=== PATIENT | male | born 1965 | race Caucasian/White ===

== ENCOUNTER → 2019-11-18 16:13 | Outpatient (BNVA) | payer OTHER, SELFPAY | PROVIDERS: PCP Nurse Practitioner; Visit Provider Internal Medicine Cardiovascular Disease | DX: I50.22 Chronic systolic (congestive) heart failure (principal); R06.02 Shortness of breath; I50.33 Acute on chronic diastolic (congestive) heart failure; I42.8 Other cardiomyopathies | CPT/HCPCS: 80048; 80162; 83880; 84443 ==

== ENCOUNTER → 2019-11-24 11:21 | Outpatient (BNVA) | payer SELFPAY | PROVIDERS: PCP Nurse Practitioner; Visit Provider Internal Medicine Cardiovascular Disease | DX: I50.22 Chronic systolic (congestive) heart failure (principal); R06.02 Shortness of breath; I42.8 Other cardiomyopathies; Z79.01 Long term (current) use of anticoagulants; E11.65 Type 2 diabetes mellitus with hyperglycemia; F17.200 Nicotine dependence, unspecified, uncomplicated; D69.6 Thrombocytopenia, unspecified; R07.9 Chest pain, unspecified; I48.0 Paroxysmal atrial fibrillation | CPT/HCPCS: 85025 ==

== ENCOUNTER 2019-12-30 08:20 | Outpatient (CLI) | payer BC, SELFPAY ==
--- NOTE | 2019-12-30 08:36 | USCV_ITS ---
Edward Amaro Age: 54 Gender: M : 1965 Exam Date: 12/30/2019 08:50 Ordering Phys: Adam Sepulveda MD ([email or web address]) Technologist: Cynthia Alexis Exam Location: [facility] – [place] Indication: CHRONIC SYSTOLIC CHF BP: / HR: 115 Rhythm: Atrial fibrillation Technical Quality: Adequate MEASUREMENTS (Male / Female) Normal Values 2D ECHO LV Diastolic Diameter PLAX 5.5 cm 4.2 - 5.9 / 3.9 - 5.3 cm LV Systolic Diameter PLAX 4.6 cm IVS Diastolic Thickness 1.3 cm 0.6 - 1.0 / 0.6 - 0.9 cm IVS Systolic Thickness 1.5 cm LVPW Diastolic Thickness 1.5 cm 0.6 - 1.0 / 0.6 - 0.9 cm LVPW Systolic Thickness 1.6 cm LVOT Diameter 2.0 cm LV Ejection Fraction 2D Teich 32.8 % LV Ejection Fraction MOD 2C 33.8 % LV Ejection Fraction 2C AL 36.0 % LA Diameter 5.0 cm LA Width 2.5 cm LA Height 6.5 cm RA Width 3.4 cm RA Height 5.6 cm M-MODE LV Diastolic Diameter MM 5.6 cm 4.2 - 5.9 / 3.9 - 5.3 cm LV Systolic Diameter MM 4.2 cm LV Ejection Fraction MM Teich 49.4 % IVS Diastolic Thickness MM 1.7 cm 0.6 - 1.0 / 0.6 - 0.9 cm IVS Systolic Thickness MM 1.5 cm LVPW Diastolic Thickness MM 1.6 cm 0.6 - 1.0 / 0.6 - 0.9 cm LVPW Systolic Thickness MM 1.8 cm Aortic Annulus Diameter 4.0 cm LA Ao Ratio MM 1.3 MV E Point Septal Separation 1.4 cm DOPPLER AV Peak Velocity 146.0 cm/s LVOT Peak Velocity 94.0 cm/s AV Area Cont Eq vti 2.0 cm squared AV Area Cont Eq pk 2.1 cm squared MV Peak Velocity 128.0 cm/s MV Area PHT 4.4 cm squared Mitral E to A Ratio 8.8 MV E' Velocity 14.0 cm/s Mitral E to MV E' Ratio 8.7 Mitral E to LV E' Lateral Ratio 8.0 Mitral E to LV E' Septal Ratio 9.4 TR Peak Velocity 256.0 cm/s TR Peak Gradient 26.1 mmHg Right Atrial Pressure 3.0 mmHg Pulmonary Artery Systolic Pressu 29.2 mmHg PV Peak Velocity 86.0 cm/s RV Acceleration Time 0.1 s FINDINGS Left Ventricle Diffuse hypokinesia of the left ventricle, most of the septum. LV ejection fraction around 40%. Right Ventricle The right ventricle is normal in size and function. Right Atrium Mildly dilated Left Atrium Mildly dilated Mitral Valve Mild mitral regurgitation Aortic Valve No significant abnormalities noted Tricuspid Valve Trace of tricuspid regurgitation Pulmonic Valve Not visualized well Pericardium No pericardial effusion Aorta Normal aortic annulus CONCLUSIONS Normal left ventricular size with a diminished ejection fraction of 40%. Wall motion normality as mentioned above Mild biatrial enlargement. Mild mitral regurgitation. Mild mitral regurgitation. Trace of tricuspid regurgitation. No intracardiac masses. No pericardial effusion. No similar previous studies are available for comparison. Dr Adam Sepulveda MD [facility] (Electronically Signed) Final Date: 30 December 2019 11:30 S
== END 2019-12-30 08:21 | disposition home or self-care (01) ==
LOC: RAD 08:29
PROVIDERS: PCP Nurse Practitioner; Visit Provider Internal Medicine Cardiovascular Disease
DX: I50.22 Chronic systolic (congestive) heart failure (principal); I48.91 Unspecified atrial fibrillation; I34.0 Nonrheumatic mitral (valve) insufficiency; R06.02 Shortness of breath
CPT/HCPCS: 80048; 80162; 83880; 93306

== ENCOUNTER → 2020-03-17 16:22 | Outpatient (BNVA) | payer BC, SELFPAY | PROVIDERS: PCP Nurse Practitioner; Visit Provider Internal Medicine Cardiovascular Disease | DX: I50.22 Chronic systolic (congestive) heart failure (principal); R06.02 Shortness of breath; I50.33 Acute on chronic diastolic (congestive) heart failure; I42.8 Other cardiomyopathies; I48.0 Paroxysmal atrial fibrillation | CPT/HCPCS: 85610 ==

== ENCOUNTER → 2020-03-23 11:35 | Outpatient (BNVA) | payer BC, SELFPAY | PROVIDERS: PCP Nurse Practitioner; Visit Provider Nurse Practitioner Family | DX: E11.65 Type 2 diabetes mellitus with hyperglycemia (principal); E03.9 Hypothyroidism, unspecified; I48.0 Paroxysmal atrial fibrillation; Z12.5 Encounter for screening for malignant neoplasm of prostate | CPT/HCPCS: 80053; 80061; 83036; 84153; 84443; 85025; 85610 ==

== ENCOUNTER → 2020-03-30 14:02 | Outpatient (BNVA) | payer BC, SELFPAY | PROVIDERS: PCP Nurse Practitioner; Visit Provider Nurse Practitioner | DX: I48.0 Paroxysmal atrial fibrillation (principal); M17.12 Unilateral primary osteoarthritis, left knee; M25.462 Effusion, left knee; M25.561 Pain in right knee | CPT/HCPCS: 73562; 85610 ==

== ENCOUNTER → 2020-04-06 15:24 | Outpatient (BNVA) | payer BC, SELFPAY | PROVIDERS: PCP Nurse Practitioner; Visit Provider Internal Medicine Cardiovascular Disease | DX: I48.0 Paroxysmal atrial fibrillation (principal) | CPT/HCPCS: 85610 ==

== ENCOUNTER → 2020-05-11 10:47 | Outpatient (BNVA) | payer BC, SELFPAY | PROVIDERS: PCP Nurse Practitioner; Visit Provider Nurse Practitioner Family | DX: E11.65 Type 2 diabetes mellitus with hyperglycemia (principal); I73.9 Peripheral vascular disease, unspecified; L08.9 Local infection of the skin and subcutaneous tissue, unspecified; M79.671 Pain in right foot; S91.309A Unspecified open wound, unspecified foot, initial encounter | CPT/HCPCS: 73630; 85025; 87070; 87075; 87077; 87184; 87205 ==

== ENCOUNTER → 2020-05-13 18:28 | Outpatient (BNVA) | payer BC, SELFPAY | PROVIDERS: PCP Nurse Practitioner; Visit Provider Surgery | DX: Z01.812 Encounter for preprocedural laboratory examination (principal); Z20.828 Contact with and (suspected) exposure to other viral communicable diseases | CPT/HCPCS: 87635 ==

== ENCOUNTER 2020-05-17 07:37 | Day surgery (SDC) | payer BC, SELFPAY ==
[2020-05-13 10:13] VITALS: BMI 46.1
[2020-05-17] MEDS: sodium chloride 0.9% 1,000 ML 30 ML IV (08:00)
[2020-05-17 08:13] LABS: Glucose Point of Care 118 mg/dL (70-110)
--- NOTE | 2020-05-17 08:26 | P.ANESASSM_ITS ---
Pre-Anesthetic Assessment Pre-Anesthetic Assessment: Height/Weight: Height 1.85 m Weight 158.757 kg Proposed Procedure: Operation Date: 05/17/20 08:30 Proposed Procedures p Colonoscopy 02439 Z12.11(Not Applicable) - Albaro Macias MD Familial anesthetic complications: denies Was Beta Davey taken within 24 hours: N/A Last intake: Intake Last Liquid Date 05/16/20 Last Liquid Time 21:00 Last Solid Date 05/15/20 Last Solid Time 23:00 Last Intake: 00:00 Social: Social History: Tobacco (1 ppd ) and No alcohol Pack years: 25 Comment: smoked this am Exam: Pre-Anes Outpt Exam: alert, oriented x 3 and clear to auscultation bilaterally Airway: Submandibular: WNL Cervical ROM: WNL MP: 2 Additional comments: poor nursing home missing teeth Pulmonary: Pulmonary: COPD and Sleep apnea (undiagnosed ) CV/HEM: CV/HEM: Afib (Dr. Derick Downey ) and CHF : : None reported Hepatic: Hepatic: None reported GI: GI: GERD Metabolic: Metabolic: DM (NIIDM ) and Morbid obesity Musc/skel: Musc/skel: OA/DJD (knee pain ) Neuropsych: Neuropsych: None reported Anesthetic Plan: ASA status: 3 Anesthesia: Anesthesia Evaluation and MAC Meds/Allergies Current Medications: Current Medications Generic Name Dose Route Start Last Admin Trade Name Freq PRN Reason Stop Dose Admin Sodium Chloride 1,000 mls @ 30 ml s/hr 05/17/20 08:00 05/17/20 08:00 Sodium Chloride 0.9% IV 05/18/20 07:59 30 mls/hr .Q24H CRYSTAL Administration PFSH Anesthesia PFSH: Medical History Atrial fibrillation Could not afford Eliquis CAD (coronary artery disease) CHF (congestive heart failure) Chronic systolic (congestive) heart failure Diabetes Non-ischemic cardiomyopathy PVD (peripheral vascular disease) Suprapatellar effusion of knee Thrombocytopenia Surgical History H/O circumcision H/O cystoscopy S/P left knee arthroscopy Family History Other CAD (coronary artery disease) Cancer Stroke Denies family history of Anesthesia complication Bleeding disorder Social History Smoking and tobacco status: current every day smoker Quit status (tobacco): considering quitting Alcohol intake: current Alcohol intake frequency: holidays/special occasions only Household members: spouse Marital status: Current occupational status: unemployed History of recent travel: No Data Anesthesia Other Labs: Laboratory Results - last 48 hr 05/17/20 08:09 POC Glucose 118 Cardiac Studies: 2 No Data to Display
--- NOTE | 2020-05-17 08:31 | W.PM.OPSFHP ---
Same Day Surgery H&P Indication for Procedure/HPI DATE OF PROCEDURE: May 17, 2020 CHIEF COMPLAINT/INDICATIONFOR SURGICAL PROCEDURE: screening colon PREOP DIAGNOSIS: screening colon PLANNED PROCEDRUE: Operation Date: 05/17/20 08:30 Proposed Procedures p Colonoscopy 30569 Z12.11(Not Applicable) - Albaro Macias MD Medications/Allergies* Home Medications Medication Instructions Recorded Confirmed Type aspirin 81 mg tablet,delayed 81 mg PO DAILY 11/18/19 05/17/20 History release docusate sodium 100 mg capsule 100 mg PO BID PRN 11/18/19 05/17/20 History Allergies/Adverse Reactions Allergy/AdvReac Type Severity Reaction Status Date / Time No Known Allergies Allergy Verified 05/16/20 09:36 Current Medications: Generic Name Dose Route Start Last Admin Trade Name Freq PRN Reason Stop Dose Admin Sodium Chloride 1,000 mls @ 30 mls/hr 05/17/20 08:00 05/17/20 08:00 Sodium Chloride 0.9% IV 05/18/20 07:59 30 mls/hr .Q24H CRYSTAL Administration Pertinent History/Comorbid Conditions* Medical History (Updated 04/28/20 @ 13:49 by MARISSA Burger-C) Atrial fibrillation Could not afford Eliquis CAD (coronary artery disease) CHF (congestive heart failure) Chronic systolic (congestive) heart failure Diabetes Non-ischemic cardiomyopathy PVD (peripheral vascular disease) Suprapatellar effusion of knee Thrombocytopenia Surgical History (Updated 04/12/20 @ 18:32 by Albaro Macias MD) H/O circumcision H/O cystoscopy S/P left knee arthroscopy Family History (Updated 11/18/19 @ 15:24 by Ginna Mina RN) CAD (coronary artery disease) Cancer Stroke Denies family history of Anesthesia complication Bleeding disorder Social History Smoking and tobacco status: current every day smoker Quit status (tobacco): considering quitting Alcohol intake: current Alcohol intake frequency: holidays/special occasions only Household members: spouse Marital status: Current occupational status: unemployed History of recent travel: No Pertinent Exam Findings alert, oriented x 3, regular rate & rhythm and operative site marked Recommendations Surgery/Procedure today Coding Level of Care Code 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
[2020-05-17 09:08] VITALS: BP 101/31; PULSE 95; RESP 18; TEMP 36.1; O2SAT 94
[2020-05-17 09:17] VITALS: BP 109/73; PULSE 81; RESP 18; O2SAT 97
--- NOTE | 2020-05-17 17:30 | ANE.PACU2 ---
Inpatient post-anesthesia follow up: Airway intact: Yes Vital signs: Temperature 97.0 F Pulse Rate 81 Respiratory Rate 18 Blood Pressure 109/73 Pulse Oximetry 97 Oxygen Delivery Me thod Nasal Cannula Oxygen Flow Rate 3 Fraction of Inspir ed Oxygen Hydration adequate: Yes Nausea and vomiting: No Pain level: 1 Mental status: Baseline
== END 2020-05-17 09:32 | disposition home or self-care (01) ==
PROVIDERS: PCP Nurse Practitioner Family; Visit Provider Surgery
PROC: 0DJD8ZZ Inspection of Lower Intestinal Tract, Via Natural or Artificial Opening Endoscopic (ICD-10-PCS; CPT 45378; principal; 2020-05-17 08:30)
DX: Z12.11 Encounter for screening for malignant neoplasm of colon (principal); D12.3 Benign neoplasm of transverse colon; K64.8 Other hemorrhoids; Z79.82 Long term (current) use of aspirin; I25.10 Atherosclerotic heart disease of native coronary artery without angina pectoris; I50.9 Heart failure, unspecified; I50.20 Unspecified systolic (congestive) heart failure; Z82.49 Family history of ischemic heart disease and other diseases of the circulatory system; Z82.3 Family history of stroke; F17.210 Nicotine dependence, cigarettes, uncomplicated; I48.91 Unspecified atrial fibrillation; M19.90 Unspecified osteoarthritis, unspecified site
CPT/HCPCS: 12345; 36416; 45385; 82962; 88305; J2704; J7030

== ENCOUNTER 2020-06-07 16:38 | Outpatient (CLI) | payer BC, SELFPAY ==
--- NOTE | 2020-06-07 16:47 | MR_ITS ---
WS: [id number] INDICATION: Cellulitis right lower limb TECHNIQUE: MR of the right foot without gadolinium enhancement. Sagittal PD, sagittal STIR, axial T1, axial STIR, axial PD, axial T2, coronal PD, and coronal T2 fat sat FINDINGS: Normal ankle mortise. Normal medial and lateral malleolus. Normal talar dome. Normal calcan eus. Normal bone marrow signal in the metatarsals. Normal metatarsals. Normal bone marrow signal in t he navicular and cuneiforms. Normal cuboid. Soft tissue edema lower leg and ankle and dorsal midfoot soft tissues. No drainable abscess or fluid collection. Normal underlying bone marrow signal. Ulceration along the plantar arch midfoot. No drain able abscess or fluid collections. Distal Achilles is normal in appearance. Tenosynovitis along the peroneal tendon sheaths. Normal exte nsor and flexor compartment tendons. Normal plantar fascia. MR/MR foot RT wo con* [id number] IMPRESSION: 1. Marker overlying the medial plantar surface. No drainable abscess or fluid collection. 2. Soft tissue edema lower leg and ankle and dorsal midfoot soft tissues consi stent with cellulitis. No drainable abscess or fluid collection. 3. No evidence of osteomyelitis. Normal bone marrow signal. 4. Tenosynovitis along the peroneal tendon sheath.
== END 2020-06-07 16:39 | disposition home or self-care (01) ==
LOC: RADSHAW 16:41
PROVIDERS: PCP Nurse Practitioner Family; Visit Provider Nurse Practitioner Family
DX: L03.115 Cellulitis of right lower limb (principal); R60.0 Localized edema; M65.871 Other synovitis and tenosynovitis, right ankle and foot
CPT/HCPCS: 73718

== ENCOUNTER 2020-06-07 20:00 | Outpatient (CLI) | payer BC, SELFPAY | END 2020-06-07 20:01 | disposition home or self-care (01) | LOC: SLEEP 06-08 10:15 | PROVIDERS: PCP Nurse Practitioner Family; Visit Provider Nurse Practitioner Family | DX: G47.33 Obstructive sleep apnea (adult) (pediatric) (principal); E11.65 Type 2 diabetes mellitus with hyperglycemia | CPT/HCPCS: 80053; 83036; 84443; 85025; 95810 ==

== ENCOUNTER 2020-09-05 20:00 | Outpatient (CLI) | payer OTHER, SELFPAY | END 2020-09-05 20:01 | disposition home or self-care (01) | LOC: SLEEP 09-06 09:08 | PROVIDERS: PCP Nurse Practitioner Family; Visit Provider Nurse Practitioner | DX: G47.33 Obstructive sleep apnea (adult) (pediatric) (principal) | CPT/HCPCS: 95811 ==

== ENCOUNTER → 2020-09-06 15:04 | Outpatient (BNVA) | payer OTHER, SELFPAY | PROVIDERS: PCP Nurse Practitioner Family; Visit Provider Nurse Practitioner Family | DX: E11.65 Type 2 diabetes mellitus with hyperglycemia (principal) | CPT/HCPCS: 80053; 80061; 83036; 84443; 85025 ==

== ENCOUNTER 2020-09-19 06:00 | Outpatient (CLI) | payer OTHER, SELFPAY | END 2020-09-19 06:01 | disposition home or self-care (01) | LOC: RAD 09-05 14:09 → LAB 09-05 14:55 | PROVIDERS: PCP Nurse Practitioner Family; Visit Provider Internal Medicine Cardiovascular Disease | DX: I48.0 Paroxysmal atrial fibrillation (principal) | CPT/HCPCS: 85610 ==

== ENCOUNTER → 2020-10-04 15:37 | Outpatient (BNVA) | payer OTHER, SELFPAY | PROVIDERS: PCP Nurse Practitioner Family; Visit Provider Nurse Practitioner Family | DX: I48.0 Paroxysmal atrial fibrillation (principal) | CPT/HCPCS: 85610 ==

== ENCOUNTER 2020-10-05 06:00 | Outpatient (RCR) | payer OTHER, SELFPAY | END 2020-10-05 23:59 | disposition home or self-care (01) | LOC: APT 06:00 | PROVIDERS: PCP Nurse Practitioner Family; Referring Provider Nurse Practitioner Family; Visit Provider Nurse Practitioner Family | DX: M17.0 Bilateral primary osteoarthritis of knee (principal); M25.561 Pain in right knee; M25.562 Pain in left knee; G89.29 Other chronic pain | CPT/HCPCS: 97163 ==

== ENCOUNTER 2020-10-06 06:00 | Outpatient (RCR) | payer OTHER, SELFPAY | END 2020-11-04 23:59 | disposition home or self-care (01) | LOC: APT 06:00 | PROVIDERS: PCP Nurse Practitioner Family; Referring Provider Nurse Practitioner Family; Visit Provider Nurse Practitioner Family | DX: M17.0 Bilateral primary osteoarthritis of knee (principal); M25.561 Pain in right knee; M25.562 Pain in left knee; G89.29 Other chronic pain | CPT/HCPCS: 97110 ==

== ENCOUNTER 2020-11-05 06:00 | Outpatient (RCR) | payer OTHER, SELFPAY | END 2020-12-05 23:59 | disposition home or self-care (01) | LOC: APT 06:00 | PROVIDERS: PCP Nurse Practitioner Family; Referring Provider Nurse Practitioner Family; Visit Provider Nurse Practitioner Family | DX: M17.0 Bilateral primary osteoarthritis of knee (principal); M25.561 Pain in right knee; M25.562 Pain in left knee; G89.29 Other chronic pain | CPT/HCPCS: 97110 ==

== ENCOUNTER → 2020-11-09 15:07 | Outpatient (BNVA) | payer OTHER, SELFPAY | PROVIDERS: PCP Nurse Practitioner Family; Visit Provider Nurse Practitioner Family | DX: M54.2 Cervicalgia (principal); M25.511 Pain in right shoulder; I50.9 Heart failure, unspecified; I48.0 Paroxysmal atrial fibrillation | CPT/HCPCS: 85610 ==

== ENCOUNTER 2020-11-10 13:48 | Outpatient (CLI) | payer OTHER, SELFPAY ==
--- NOTE | 2020-11-10 13:56 | XR_ITS ---
WS: [id number] CERVICAL SPINE 3 VIEWS HISTORY: M54.2 - Cervicalgia COMPARISON: None available. Mild straightening of the normal cervical lordosis. C7 is poorly visualized in the lateral projection . No fractures are identified. Disc spaces are well-maintained. Lateral mass of C1 and C2 are aligned . Odontoid intact. Soft tissues are normal. XR/XR cervical spine 3V* [id number] IMPRESSION: 1. No fracture or significant disc space narrowing. 2. Incompletely visualized C7 vertebral body due to body habitus.
--- NOTE | 2020-11-10 13:56 | XR_ITS ---
WS: [id number] RIGHT SHOULDER: 3 VIEW(S) TECHNIQUE: Internal and external rotation with Y view. HISTORY: M25.511 - Pain in right shoulder COMPARISON: None available. No fracture or dislocation or soft tissue abnormality. Moderate narrowing of the AC joint. There is a small osteophyte extending inferiorly from the distal clavicle. Small calcific density adjacent to the lateral humeral head. XR/XR shoulder RT min 2V* [id number] IMPRESSION: 1. Moderate AC joint arthritis with focal osteophyte extending towards the rot ator cuff. 2. Posterior lateral humeral head osteophyte versus rotator cuff calcific tend initis.
== END 2020-11-10 13:49 | disposition home or self-care (01) ==
PROVIDERS: PCP Nurse Practitioner Family; Visit Provider Nurse Practitioner Family
DX: M54.2 Cervicalgia (principal); M25.511 Pain in right shoulder; M13.811 Other specified arthritis, right shoulder; M25.711 Osteophyte, right shoulder
CPT/HCPCS: 72040; 73030

== ENCOUNTER → 2020-11-17 13:34 | Outpatient (BNVA) | payer OTHER, SELFPAY | PROVIDERS: PCP Nurse Practitioner Family; Visit Provider Internal Medicine Cardiovascular Disease | DX: I48.0 Paroxysmal atrial fibrillation (principal) | CPT/HCPCS: 85610 ==

== ENCOUNTER → 2021-01-19 10:58 | Outpatient (BNVA) | payer OTHER, SELFPAY | PROVIDERS: PCP Nurse Practitioner Family; Visit Provider Nurse Practitioner Family | DX: E11.65 Type 2 diabetes mellitus with hyperglycemia (principal); I48.0 Paroxysmal atrial fibrillation; I50.22 Chronic systolic (congestive) heart failure; D69.6 Thrombocytopenia, unspecified | CPT/HCPCS: 80053; 80061; 83036; 84443; 85025; 85610 ==

== ENCOUNTER → 2021-02-28 14:07 | Outpatient (BNVA) | payer OTHER, SELFPAY | PROVIDERS: PCP Nurse Practitioner Family; Visit Provider Internal Medicine Cardiovascular Disease | DX: I48.0 Paroxysmal atrial fibrillation (principal); Z79.01 Long term (current) use of anticoagulants | CPT/HCPCS: 85610 ==

== ENCOUNTER → 2021-03-07 11:18 | Outpatient (BNVA) | payer OTHER, SELFPAY | PROVIDERS: PCP Nurse Practitioner Family; Visit Provider Internal Medicine Cardiovascular Disease | DX: I48.0 Paroxysmal atrial fibrillation (principal) | CPT/HCPCS: 85610 ==

== ENCOUNTER 2021-05-22 07:02 | Outpatient (CLI) | payer OTHER, SELFPAY ==
--- NOTE | 2021-05-22 07:07 | USCV_ITS ---
Edward Amaro Age: 56 Gender: M : 1965 Exam Date: 05/22/2021 07:18 Ordering Phys: Adam Sepulveda MD ([email or web address]) Technologist: Fozia Bustillos Exam Location: [facility] – [place] Indication: COLD FEET Risk Factors: Previous Vascular Surgery: RIGHT LEFT BP: 150.0 / BP: 160.0/ 0 0 Waveform Velocity (cm/s) Velocity (cm/s) Waveform Triphasic 118.5 Iliac Prox 86.8 Triphasic Triphasic 97.5 Iliac Mid 99.5 Triphasic Triphasic 79.0 Iliac Distal 87.6 Triphasic Triphasic 85.4 [facility] [employer] 57.2 Triphasic N/A SFA Prox 87.2 Triphasic N/A SFA Mid 104.7 Triphasic N/A SFA Dist 89.3 Triphasic Monophasic 38.5 POP 66.8 Triphasic Monophasic 38.5 W[facility] [employer] 62.9 Triphasic Monophasic 35.9 DPA 45.8 Triphasic LAWANDA 1.0 FINDINGS UNABLE TO OBTAIN RIGHT LAWANDA Mild to moderate diffuse plaques in the iliac and common femoral artery on the right side No Doppler flow signals were noted in the superficial femoral artery on the right side. Monophasic and continuous Doppler waveforms in the popliteal and infrapopliteal vessels on the right side Normal resting LAWANDA on the left side-1.0. 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 Normal resting LAWANDA and Doppler waveforms on the left side, suggesting no significant obstructive arterial disease. No similar previous studies are available for comparison Dr Adam Sepulveda MD [facility] (Electronically Signed) Final Date: 22 May 2021 09:41 S
== END 2021-05-22 07:03 | disposition home or self-care (01) ==
LOC: US 07:04
PROVIDERS: PCP Nurse Practitioner Family; Visit Provider Internal Medicine Cardiovascular Disease
DX: I73.9 Peripheral vascular disease, unspecified (principal)
CPT/HCPCS: 93925

== ENCOUNTER → 2021-06-08 15:50 | Outpatient (BNVA) | payer OTHER, SELFPAY | PROVIDERS: PCP Nurse Practitioner Family; Visit Provider Internal Medicine Cardiovascular Disease | DX: Z01.812 Encounter for preprocedural laboratory examination (principal); Z20.822 Contact with and (suspected) exposure to COVID-19; I48.0 Paroxysmal atrial fibrillation; I25.10 Atherosclerotic heart disease of native coronary artery without angina pectoris; I50.22 Chronic systolic (congestive) heart failure; I73.9 Peripheral vascular disease, unspecified; E11.65 Type 2 diabetes mellitus with hyperglycemia; Z87.891 Personal history of nicotine dependence | CPT/HCPCS: 80048; 85025; 85610; 86850; 86900; 87635 ==

== ENCOUNTER 2021-06-14 06:04 | Outpatient (CLI) | payer OTHER, SELFPAY ==
[2021-06-14] VITALS (17 sets, daily range): BP systolic 76–144; BP diastolic 58–93; PULSE 76–106; RESP 20–26; TEMP 36.3–37.2; O2SAT 85–97; BMI 48.0
--- NOTE | 2021-06-14 06:00 | XACV_ITS ---
Wt: 165 kg BSA: 3.00 m2 Any Known Allergies: No known allergies Gender: Male : 1965 Exam Type: Invasive Peripheral Vascular Procedure(s): Procedure Description: Peripheral Cath Diagnostic Procedure Procedure Description: Abdominal aortic angiography Procedure Description: Peripheral vascular Intervention Procedure Description: PV Atherectomy Exam Priority: Routine GEOAC, Derick; Abdominal Diagnostic Findings The abdominal aortogram was performed in the AP view. The renal artery and inferior mesenteric arteries are visualized and was found to have no significant stenotic lesions. The abdominal aorta also was found to have no unstable lesions or stenosis. The right and left common iliac arteries were found to be patent with no significant stenotic lesions. The the ostium of the right internal iliac artery was found to have around 50% narrowing. The ostium of the left internal iliac artery was found to have around 60% narrowing. The external iliac arteries were found to be patent with no significant stenotic lesions.. Lower Extremity Diagnostic Findings The right common femoral artery was selectively engaged. A multipurpose catheter was placed just above the origin of the profunda femoral artery. Femoral angiogram with runoff was performed. The femoral artery was found to be totally occluded after the origin of the profunda femoral artery. The artery was found to be reconstituting just at the distal end of the adductor canal. Popliteal artery and the infrapopliteal vessels were found to be patent with no significant stenotic lesions. Left iliac angiogram with runoff was performed by injecting into the left femoral sheath. The common femoral and the femoral artery were found to have minimal intimal irregularities. No significant stenotic lesions were noted. The popliteal and infrapopliteal vessels were found to be patent with no significant stenotic lesions. Three-vessel runoff was noted resting extending to the ankle. Conclusions 56-year-old white male with a history of nonischemic cardiomyopathy, chronic atrial fibrillation, presenting with complaining of cold feet bilaterally, more so on the left side. He had an LAWANDA of 0.5 on the left side and normal LAWANDA on the right side. He also had features of total occlusion of the SFA. For further evaluation and management of his peripheral artery disease, a peripheral angiogram was recommended. Patient underwent abdominal aortogram, right femoral angiogram with runoff and left iliac angiogram with runoff today. The findings are as follows.. 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 Patent popliteal and infrapopliteal vessels bilaterally. Minimal intimal regularities in the left femoral artery. Mild to moderate stenosis at the ostium of the internal iliac artery on both sides. No significant stenotic or unstable lesions in the abdominal aorta, renal arteries or inferior mesenteric artery. Recommendations Based on the angiogram and patient's clinical presentation, it was thought to be appropriate to consider percutaneous intervention of the femoral artery occlusion. I discussed and reviewed the angiogram data with the Dr Sheehan. He concurred with this plan. Dr. Sheehan took over further management of this patient at this point. Hemodynamic Data Phase:Rest AO : 98.0 / 60.0 ( 72.0 ) @ 6:15:00 AM 90.0 / 60.0 ( 69.0 ) @ 8:11:00 AM 111.0 / 66.0 ( 78.0 ) @ 8:39:00 AM 99.0 / 59.0 ( 73.0 ) @ 9:50:00 AM 106.0 / 67.0 ( 79.0 ) @ 10:21:00 AM Access Site Site: Left Femoral artery Sheath Size: 5 Fr Hemost... Method: Suture Hemost... Success: Successful Site: Left Femoral artery Sheath Size: 6 Fr Hemost... Method: Suture Hemost... Success: Successful Site: Right Pedal Sheath Size: 6 Fr Hemost... Method: Manual Compression Hemost... Success: Successful Site: Right Pedal Sheath Size: 6 Fr Hemost... Method: Suture Hemost... Success: Successful Procedure Details Findings Procedure Consent Obtained. Pre-Procedure Time Out. Identified patient by full name and date of as verbalized by the patient/guarantor. Does the consent match the physician's order: Yes. Accurate & Complete Informed Consent: Yes. Inpatient/Outpatient History & Physical on Chart: Yes. If H&P is completed, is and addenduem needed: N/A; If yes, is the addendum complete: N/A. Visualize and Verify Site with Patient/Guarantor: N/A. Relevant Radiology Images available: Yes. Pre-op teaching completed and patient verbalized understanding. The risks, benefits, and alternatives of sedation and/or procedure were discussed by physician. The patient agrees to continue. Procedure started. Correct patient, site and procedure confirmed by cath team. PERRLA. Strong, equal hand intermediate school teacher bilaterally. Lungs clear x 5 lobes. IV Site on Arrival: 20 gauge in the left anticubital. IV Fluids: 0.9% NaCl at KVO. 0 mL infused prior to laboratory chief. Pre Procedural Pulses: right dorsalis pedis was Doppled. Pre Procedural Pulses: left dorsalis pedis was 1+. Pre Procedural Pulses: bilateral posterior tibial was Doppled. Pre Procedural Pulses: bilateral radial was 1+. Oxygen started at 2liters/min via nasal canula. bilateral groins was prepped with chloroprep then draped in the usual sterile fashion. Physician notified. Baseline sample Acquired. HR: 108 BPM. Equipment: 6F - Femoral. Cardiac Cath Pack. ACIST Manifold Kit Model BT 2000. Heparinized Saline (2 units/mL), 1000 mL bag. Kit, Micropuncture. Physician arrived. Physician scrubbed in. Time out performed with cath team. Lidocaine 1% infiltrated to the left groin. Arterial access obtained with micropuncture set. A 5FrFr UF catheter in over wire. Abdominal aortogram performed in AP @ 10 mL/sec for a total of 30 mL. glidewire inserted. Catheter out. glidewire removed. right leg run off 10ml/sec for a total of 30ml. glidewire inserted. Abdominal aortogram performed in ANDORRAN @ 10 mL/sec for a total of 10 mL. Catheter out. left leg run off through sheath 10ml/sec for a total of 30ml. Side port of sheath attached to Normal Saline flush at KVO to maintain patency. Dr. Sepulveda scrubbed out. A Suture was successful obtaining hemostatsis at the Left Femoral artery insertion site. Sheath(s) sutured into position with 2-0 silk and sterile 4x4's and Op-site applied over the site. No oozing or signs and symptoms of hematoma noted. Arterial sheath flushed and connected to tranducer and pressure bag with heparinized saline. Post Procedure: Pulses reassessed and unchanged. PERRLA. Strong, equal hand intermediate school teacher bilaterally. No VTE prophylaxis required. Fluoro: 7:20. Contrast type used: Visipaque 320 mgI/mL, 500 mL bottle. [id number]. Post-op diagnosis: pvd. Complications: none. Estimated blood loss: 5mL-10mL. Responsiveness - Normal response to verbal stimuli; alert and oriented, PERRLA. Airway - Unaffected, no intervention required; spontaneous ventilation. Circulation: W/N/L, pulses unchanged. Nausea/Vomiting: No. Procedure completed. Patient transferred by bed to CPRU. Medication's Wasted: Lidocaine 1% = 10 mL. Total IV fluids: 100 mL. Vital chart was stopped. Vital chart was stopped. Procedure Consent Obtained. Pre-Procedure Time Out. Identified patient by full name and date of as verbalized by the patient/guarantor. Does the consent match the physician's order: Yes. Accurate & Complete Informed Consent: Yes. Inpatient/Outpatient History & Physical on Chart: Yes. If H&P is completed, is and addenduem needed: No. Visualize and Verify Site with Patient/Guarantor: N/A. Relevant Radiology Images available: Yes. The risks, benefits, and alternatives of sedation and/or procedure were discussed by physician. The patient agrees to continue. Procedure started. PERRLA. Strong, equal hand intermediate school teacher bilaterally. Lungs clear x 5 lobes. IV Site on Arrival: 20 gauge in the left anticubital. IV Fluids: 0.9% NaCl at KVO. 500 mL infused prior to laboratory chief. Oxygen started at 2liters/min via nasal canula. left groin was prepped with chloroprep then draped in the usual sterile fashion. Physician notified. Baseline sample Acquired. HR: 92 BPM. Equipment: 6F - Radial. Cardiac Cath Pack. ACIST Manifold Kit Model BT 2000. Heparinized Saline (2 units/mL), 1000 mL bag. Physician arrived. Physician scrubbed in. (Dr Sheehan and Dr Field). Time out performed with cath team. An existing 5 fr sheath is intact from previous diagnostic procedure this AM. Will now perform intervention of right SFA. A 5 fr Cook dilator was used to reposition the existing sheath in the left femoral artery. A 5Fr RIM catheter in over the glidewire. Glidewire out. hand injection performed of the aortic arch through the 5fr RIM. Glidewire in and advanced down the right leg. RIM catheter out. Sheath upsized to a 6 Fr. Right common femoral selected and arteriogram with runoff performed @ 10 mL/sec for a total of 30 mL. Right common femoral selected and arteriogram with runoff performed @ 10 mL/sec for a total of 20 mL. Seeker catheter inserted over the glide wire and attempted to advaned across the lesion in the right SFA. Glidewire out. Hand injection of the right SFA performed through the seeker. Glidewire in. Glidewire out. Side port of sheath attached to Normal Saline flush at KVO to maintain patency. Seeker out. Moving to right pedal access. Add inventory: Cook Pedal Access kit, Terumo 0.035 Glidesheath. Lidocaine 1% infiltrated to the right pedal. Add Inventory: Micropuncture kit. Venous access obtained with micropuncture set using ultrasound. Lidocaine 1% infiltrated to the right pedal. Right pedal venous sheath removed and manual pressure held. Dr field scrubbed out. Lidocaine 1% infiltrated to the right pedal. Ultrasound was called to help with pedal artery access. Lidocaine 1% infiltrated to the right pedal. Lv Block tech here to assist with arterial access. Arterial access obtained with pedal access kit. Pedal dilator exchanged for a 6fr Glidesheath. Glidewire in. Seeker support catheter in over the glidewire. Glidewire out. Marycarmen Yanes RN in to circulate for Heriberto Miranda RN, MORTGAGE COUNSELOR. Hand injection performed through the sheath. Glidewire in. Glidewire out. Hand injection performed through the sheath. Glidewire in. Glidewire out. ViperWire advance guidewire in through the seeker. Seeker support catheter out. Right common femoral selected and arteriogram with runoff performed @ 10 mL/sec for a total of 10 mL. Right common femoral selected and arteriogram with runoff performed @ 10 mL/sec for a total of 20 mL. Right common femoral selected and arteriogram with runoff performed @ 10 mL/sec for a total of 20 mL. Right common femoral selected and arteriogram with runoff performed @ 10 mL/sec for a total of 20 mL. Add inventory: Cleeng 360 Peripheral Orbital Atherectomy System. 2.0mm [place] in and orbital atherectomy of the right SFA performed. A Manual Compression was successful obtaining hemostatsis at the Right Pedal venous insertion site. Heriberto Cabrera RN, MORTGAGE COUNSELOR in to scrub for Stanley Longoria RN, MORTGAGE COUNSELOR. Orbital Atherectomy system out. Seeker support catheter in. ViperWire out. Glidewire in. Seeker support catheter out. Add inventory: Endoflator. Inflation number : 1 A AB [place] 35 TIME CLERK Catheter [id number] was prepped and advanced across the Superficial Femoral, Right , then inflated to 6 SEVERIANO for 2:47 seconds. Inflation number: 2 The AB [place] 35 TIME CLERK Catheter [id number] was reinflated across the Superficial Femoral, Right, to 6 SEVERIANO for 2:01 seconds. Balloon out. Right common femoral selected and arteriogram with runoff performed @ 10 mL/sec for a total of 30 mL. Inflation number : 3 A AB [place] 35 OTW [id number] was prepped and advanced across the Superficial Femoral, Right , then inflated to 6 SEVERIANO for 1:56 seconds. Inflation number: 4 The AB [place] 35 OTW [id number] was reinflated across the Superficial Femoral, Right, to 6 SEVERIANO for 0:57 seconds. Inflation number: 5 The AB [place] 35 OTW [id number] was reinflated across the Superficial Femoral, Right, to 6 SEVERIANO for 0:59 seconds. Balloon out. Right common femoral selected and arteriogram with runoff performed @ 10 mL/sec for a total of 30 mL. Right common femoral selected and arteriogram with runoff performed @ 10 mL/sec for a total of 20 mL in DSA. Glidewire out. Sheath upsized to a 6 Fr. A Suture was successful obtaining hemostatsis at the Left Femoral artery insertion site. Dr Sheehan scrubbed out. Sheath(s) 6fr in Left Femoral Artery & Right Pedal Artery sutured into position with 2-0 silk and sterile 4x4's and Op-site applied over the site. No oozing or signs and symptoms of hematoma noted. Arterial sheaths flushed and connected to tranducer and pressure bag with heparinized saline. Post Procedure: Pulses reassessed and unchanged. PERRLA. Strong, equal hand intermediate school teacher bilaterally. No VTE prophylaxis required. Medication's Wasted: Nitro = 49.6 mg. Medication's Wasted: Lidocaine 1% = 5 mL. Total IV fluids: 265 mL. Post-op diagnosis: Total occlusion of the right SFA s/p successful orbital atherectomy and ballooning. Complications: none. Estimated blood loss: 5mL-10mL. Responsiveness - Normal response to verbal stimuli; alert and oriented, PERRLA. Airway - Unaffected, no intervention required; spontaneous ventilation. Circulation: W/N/L, pulses unchanged. Nausea/Vomiting: No. A Suture was successful obtaining hemostatsis at the Right Pedal insertion site. Procedure completed. Patient transferred by bed to 1st floor. Vital chart was stopped. Procedure Medications Start: 7:40 AM Stop: 7:40 AM Medication: Versed Amount: 1 mg Route: I.V. Start: 7:40 AM Stop: 7:40 AM Medication: Fentanyl Amount: 50 mcg Route: I.V. Start: 7:47 AM Stop: 7:47 AM Medication: Versed Amount: 1 mg Route: I.V. Start: 7:47 AM Stop: 7:47 AM Medication: Fentanyl Amount: 50 mcg Route: I.V. Start: 8:17 AM Stop: 8:17 AM Medication: 0.9% Saline Amount: 125 ml/hr Route: I.V. drip Start: 9:58 AM Stop: 9:58 AM Medication: Versed Amount: 1 mg Route: I.V. Start: 9:58 AM Stop: 9:58 AM Medication: Fentanyl Amount: 50 mcg Route: I.V. Start: 10:08 AM Stop: 10:08 AM Medication: Versed Amount: 1 mg Route: I.V. Start: 10:08 AM Stop: 10:08 AM Medication: Fentanyl Amount: 50 mcg Route: I.V. Start: 10:34 AM Stop: 10:34 AM Medication: Versed Amount: 2 mg Route: I.V. Start: 10:56 AM Stop: 10:56 AM Medication: Fentanyl Amount: 50 mcg Route: I.V. Start: 11:01 AM Stop: 11:01 AM Medication: Fentanyl Amount: 50 mcg Route: I.V. Start: 11:20 AM Stop: 11:20 AM Medication: Versed Amount: 1 mg Route: I.V. Start: 11:43 AM Stop: 11: AM Medication: Versed Amount: 1 mg Route: I.V. Start: 11: AM Stop: 11: AM Medication: Heparin Amount: 5000 units Route: I.V. Start: 11:49 AM Stop: 11:49 AM Medication: Heparin Amount: 2000 units Route: I.V. Start: 11:55 AM Stop: 11:55 AM Medication: Fentanyl Amount: 50 mcg Route: I.V. Start: 11:56 AM Stop: 11:56 AM Medication: Versed Amount: 1 mg Route: I.V. Start: 12:21 PM Stop: 12:21 PM Medication: Heparin Amount: 2000 units Route: I.V. Start: 12:23 PM Stop: 12:23 PM Medication: Fentanyl Amount: 50 mcg Route: I.V. Start: 12:24 PM Stop: 12:24 PM Medication: Versed Amount: 1 mg Route: I.V. Start: 12:25 PM Stop: 12:25 PM Medication: Nitrogylcerin Amount: 400 mcg Route: I.A. I, the attending physician, have reviewed and verified all procedure medications. Yes, all medications given per verbal order History/Risk Factors Hypertension: No Dyslipidemia: No Peripheral Arterial Disease (PAD): No Obesity: No Renal Disease: No Tobacco Use: Current/Recent(w/in 1 year) Prior Interventions PCI: No CABG: No Valve Surgery: No Report Signatures Finalized by Dr Adam Sepulveda MD [facility] on 06/14/2021 06:33 PM
[2021-06-14] MEDS: diphenhydrAMINE 50 mg Capsule PO (06:50)
--- NOTE | 2021-06-14 07:27 | W.PM.OPSUD ---
Surgery/Procedure H&P Update DATE OF PROCEDURE: June 14, 2021 DATE H&P PERFORMED: 06/08/21 H&P UPDATE INFORMATION: I have reviewed H&P completed within last 30 days, I have examined patient prior to procedure and No changes to prior documentation PREOP DIAGNOSIS: PAD PRIMARY INDICATION FOR PROCEDURE: Cold feet/abnormal LAWANDA PLANNED PROCEDURE: Operation Date: 06/14/21 07:00 Proposed Procedures p Peripheral Diagnostic(Bilateral) - Adam Sepulveda MD PATIENT REASSESSED PRIOR TO SEDATION, WITH NO CHANGE NOTED: Yes PHYSICAL EXAM: alert, oriented x 3, clear to auscultation bilaterally and regular rate & rhythm OTHER PERTINENT EXAM FINDINGS: Alert and oriented x3 heart sounds are normal. Lungs are clear. AIRWAY EVAL/ANESTHESIA PLAN: normal airway, see other exam findings, ASA II, Monitored Anesthesia, Local Anesthesia, Risks, benefits & alternatives of sedation and/or procedure discussed and Patient agrees to continue as planned
--- NOTE | 2021-06-14 08:41 | PC.NURSE ---
pt returned to [facility] due to emergent case in the er. due to patients inability for transportation it has been decided to return to the slabber later today to fix the blockage. pt alert and stated he understood the circumstances and prefers to have this completed today. left groin still maintains a sheath connected to a pressure bag. no bleeding or hematoma noted. pt continues to be monitored.
--- NOTE | 2021-06-14 10:55 | USCV_ITS ---
Edward Amaro Age: 56 Gender: M : 1965 Exam Date: 06/14/2021 11:02 Ordering Phys: Gurpreet Sheehan MD ([email or web address]) Technologist: Exam Location: [id number] Indication: ultrasound guided vascular access Findings Guided access for Dr. Sheehan. The examination was performed at the region of the popliteal artery on the right side Artery was found to be patent with monophasic and continuous Doppler waveform Conclusions Features suggestive of a patent popliteal artery with collateral filling Dr Adam Sepulveda MD FAC (Electronically Signed) Final Date: 15 June 2021 09:22 S
[2021-06-14] MEDS: clopidogrel 300 mg Tablet PO (14:16)
[2021-06-14] MEDS: sodium chloride 0.9% 1,000 ML 100 ML IV (14:17)
[2021-06-14 16:08] LABS: Partial Thromboplastin Time 31.2 SECONDS (23.9-36.7)
[2021-06-14] MEDS: FUROsemide 40 mg Tablet PO (17:54)
[2021-06-14] MEDS: potassium chloride ER 10 mEq Tablet PO (17:54)
[2021-06-15 03:32] VITALS: BP 107/88; PULSE 103; RESP 16; TEMP 36.6; O2SAT 97
[2021-06-15 04:06] LABS: Basophils % 0.3 %; Eosinophils # 0.1 10^3/uL (0.0-0.8); Eosinophils % 0.7 %; Hematocrit 43.8 % (42.0-52.0); Hemoglobin 14.3 g/dL (11.7-16.6); Lymphocytes # 2.6 10^3/uL (0.8-4.8); Lymphocytes % 26.8 %; Mean Corpuscular HGB Conc 32.6 g/dL (30.0-36.0); Mean Corpuscular Hemoglobin 32.1 pg (28.0-34.0); Mean Corpuscular Volume 98.2 fl (80-94); Mean Platelet Volume 9.6 fL (7.4-10.4); Monocytes # 0.9 10^3/uL (0.2-0.9); Monocytes % 8.9 %; Neutrophils # 6.06 10^3/uL (1.8-7.7); Neutrophils % 62.9 %; Nucleated Red Blood Cells % 0 %; Platelet Count 177 10^3/cmm (130-400); Red Blood Count 4.46 10^6/uL (4.1-5.3); White Blood Count 9.7 10^3/uL (4.0-10.0)
[2021-06-15 04:34] LABS: Anion Gap 16.3 (5-19); Blood Urea Nitrogen 10 mg/dL (6-20); Calcium 7.9 mg/dL (8.5-10.5); Carbon Dioxide 25 mmol/L (22-29); Chloride 101 mmol/L (98-107); Glomerular Filtration Rate 139.4 mL/min (90-130); Glucose 156 mg/dL (65-115); Osmolality Calculated 288 mOsm/kg (285-295); Potassium 4.3 mmol/L (3.5-5.1); Sodium 138 mmol/L (136-145)
[2021-06-15 05:11] VITALS: PULSE 84
--- NOTE | 2021-06-15 05:20 | PC.NURSE ---
Frequent safety and comfort rounds continue. Orders and/or nursing care completed as indicated. Patient monitored for response to intervention and treatment(s). Education provided includes keeping leg straight for 6 hours as he is post cath. Patient and/or medical detail representative verbalizes understanding, Will continue to monitor.
[2021-06-15 09:08] VITALS: PULSE 103
[2021-06-15] MEDS: potassium chloride ER 10 mEq Tablet PO (09:08)
[2021-06-15] MEDS: carvedilol 3.125 mg Tablet PO (09:08)
[2021-06-15] MEDS: FUROsemide 40 mg Tablet PO (09:08)
[2021-06-15] MEDS: atorvastatin 40 mg Tablet 20 MG PO (09:08)
[2021-06-15] MEDS: digoxin 125 mcg Tablet PO (09:08)
[2021-06-15] MEDS: aspirin 81 mg EC Tablet PO (09:09)
--- NOTE | 2021-06-15 09:52 | P.PN_ITS ---
Subjective Subjective: Interval history: Patient was admitted to hospital following the peripheral intervention for close monitoring. He underwent a peripheral angiogram followed by PCI of the occluded femoral artery on the right side. The intervention was performed with a pedal approach . The patient tolerated the procedure well and there were no complications. Medications: Reviewed: Yes Medication Review Details: Current Medications Acetaminophen (Acetaminophen 325 Mg Tablet) 650 mg PO Q6H PRN PRN Reason: MILD PAIN Al Hydrox/Mg Hydrox/Simethicone (Zyoj-Mrp-Vjjyhrraw-Charlene 30 Ml Udc) 30 ml PO Q15M PRN PRN Reason: INDIGESTION Al Hydrox/Mg Hydrox/Simethicone (Tlhn-Ewi-Ymbfijqss-Charlene 30 Ml Udc) 30 ml PO Q15M PRN PRN Reason: INDIGESTION Alprazolam (Alprazolam 0.5 Mg Tablet) 0.25 mg PO TID PRN PRN Reason: ANXIETY Aspirin (Aspirin 81 Mg Ec Tablet) 81 mg PO DAILY [facility] Last Admin: 06/15/21 09:09 Dose: 81 mg Documented by: Atorvastatin Calcium (Atorvastatin 40 Mg Tablet) 20 mg PO DAILY [facility] Last Admin: 06/15/21 09:08 Dose: 20 mg Documented by: Atropine Sulfate (Atropine 1 Mg/Ml Sdv 1 Ml) 0.5 mg IVP PRN PRN PRN Reason: Symptomatic bradycardia Carvedilol (Carvedilol 3.125 Mg Tablet) 3.125 mg PO BID@00,2100 [facility] Last Admin: 06/15/21 09:08 Dose: 3.125 mg Documented by: Celecoxib (Celecoxib 100 Mg Capsule) 100 mg PO BID@899,2100 [facility] Last Admin: 06/15/21 09:09 Dose: Not Given Documented by: Digoxin (Digoxin 125 Mcg Tablet) 125 mcg PO DAILY [facility] Last Admin: 06/15/21 09:08 Dose: 125 mcg Documented by: Fentanyl (Fentanyl 50 Mcg/Ml Inj 2ml) 50 mcg IVP PRN PRN PRN Reason: PAIN Furosemide (Furosemide 40 Mg Tablet) 40 mg PO BID@08,16 [facility] Last Admin: 06/15/21 09:08 Dose: 40 mg Documented by: Lisinopril (Lisinopril 5 Mg Tablet) 5 mg PO DAILY [facility] Last Admin: 06/15/21 09:05 Dose: Not Given Documented by: Magnesium Hydroxide (Magnesium Hydroxide 30 Ml Udc) 30 ml PO DAILY PRN PRN Reason: CONSTIPATION Magnesium Hydroxide (Magnesium Hydroxide 30 Ml Udc) 30 ml PO DAILY PRN PRN Reason: CONSTIPATION Naloxone HCl (Naloxone 0.4 Mg/Ml Sdv) 0.1 mg IVP Q2M PRN PRN Reason: RESPIRATORY RATE < 8/MIN Nitroglycerin (Nitroglycerin 0.4 Mg Sublingual Tablet) 0.4 mg SUBLINGUAL Q5M PRN PRN Reason: CHEST PAIN Potassium Chloride (Potassium Chloride Er 10 Meq Tablet) 10 meq PO BID [facility] Last Admin: 06/15/21 09:08 Dose: 10 meq Documented by: Temazepam (Temazepam 15 Mg Capsule) 15 mg PO BEDTIME PRN PRN Reason: INSOMNIA Vitals/I&O/Wt Last Vital Signs Temp 98 F 06/15/21 03:32 Pulse 103 H 06/15/21 09:08 Resp 16 06/15/21 03:32 BP 107/88 06/15/21 03:32 Pulse Ox 97 06/15/21 03:32 06/14/21 06/15/21 06/15/21 22:59 06:59 14:59 Intake Total 545 / 545 300 / 845 Output Total 1000 / 1000 800 / 1800 Balance -455 / -455 -500 / -955 Weight last 48 hrs Weight 364 lb Weight 364 lb Physical Exam Narrative: EXAM NARRATIVE: GENERAL: The patient is alert and oriented times three. Not in any acute distress. HEENT: No significant pallor, icterus or lymphadenopathy.Oral cavity: There are no mucous membrane lesions. NECK: Trachea appears to be central. No masses noted. No JVD or thyromegaly appreciated. RESPIRATORY: Chest is symmetrical. No intercostals muscle retraction or any accessory muscle activation. There is no chest wall tenderness. Breath sounds are heard bilaterally. No rales or rhonchi heard. No evidence of any consolidation. BREASTS: Deferred. HEART: The heart sounds are normal. No S3 or S4. Short systolic murmur the left sternal border. No diastolic murmurs.. No pericardial rub ABDOMEN: No vessel pulsations or distention. No tenderness. No organomegaly appreciated. Bowel sounds are normally heard. : Deferred. RECTAL: Deferred. LYMPHATIC: No lymphadenopathy noted in the neck or groin. EXTREMITIES: Minimal swelling of the right ankle. Good dorsalis pedis and posterior tibial pulses. MUSCULOSKELETAL: No acute joint deformities or swelling SKIN: There are no significant rashes or ecchymosis NEUROPSYCHIATRIC: The patient is alert and oriented x3. Appears to be in a good mood. No tremors or rigidity noted. Data : 06/15/21 03:35 06/15/21 03:35 A&P Assessment and plan (1) Peripheral arterial disease: Patient was found to have a total occlusion of the femoral artery right after the profunda femoris on the right side. This was intervened with a pedal approach. Good angiographic results. Status: Acute (2) Non-ischemic cardiomyopathy: Clinically stable. Status: Acute (3) Atrial fibrillation: Status: Acute Qualifiers: Atrial fibrillation type: paroxysmal Qualified Code(s): I48.0 - Paroxysmal atrial fibrillation (4) Chronic systolic (congestive) heart failure: Currently compensated. We will continue on the current medications. Status: Acute (5) Diabetes: Advised to hold off on the Metformin till Saturday. Resume the previous dose at that time. Status: Acute Qualifiers: Diabetes mellitus type: type 2 Diabetes mellitus residential insulin use: without local intermodal truck driver use Diabetes mellitus complication status: with hyperglycemia Qualified Code(s): E11.65 - Type 2 diabetes mellitus with hyperglycemia (6) Dyslipidemia: Continue on the simvastatin Status: Acute Attestations Medical Necessity Statement*: Since the patient remained stable with no new symptoms, he is being discharged home today. Coding Level of Care Code Acute Microstrategy Bi Developer for Denia Fwd History Expanded Problem Focused Exam Detailed Medical Decision Making Moderate Complexity Diagnoses Peripheral arterial disease I73.9 Non-ischemic cardiomyopathy I42.8 Atrial fibrillation I48.0 Atrial fibrillation type: paroxysmal Chronic systolic (congestive) heart failure I50.22 Diabetes E11.65 Diabetes mellitus type: type 2 Diabetes mellitus local intermodal truck driver insulin use: without residential use Diabetes mellitus complication status: with hyperglycemia Dyslipidemia E78.5
--- NOTE | 2021-06-15 10:06 | PC.CHAP ---
Pastoral Care Encounter/Spiritual Assessment Type of Contact [] Declined char house supervisor visit [] Patient/Family/Request visit [] Outpatient visit [] Follow-up visit [] Physician referral [] Code/Alert [x] Routine visit [] Staff referral [] Actively dying [] Patient sleeping [] Family support [] [] Out of room [] Palliative care [] [x] Receiving care in room [] Pre-surgical visit [] Trauma [] Long length of stay [] ICU visit [] Other: Relational/Emotional Strength [x] Patient feels connected with others/family/visitors/staff [] Distress [] Loneliness/isolation [] Abandonment Spirituality of Patient [x] Person of [place] [] Attends Confucianist of their [place] [x] Believes in Prayer [] Reads Bible or Bahai materials [] There are Spiritual issues to be addressed Drop Forge Operator Interventions [x] Prayer [x] Active listening [x] Non-anxious presence [x] Spiritual/emotional support [] Crisis/trauma care [x] Spiritual counseling [] Bereavement support [] Provided bereavement packet [] Provided Bible/devotional materials [] Provided toy/stuffed animal, coloring book to patient or family member [] Provided Communion [] Anointing/[place] [] Salvation [x] Completed spiritual assessment [] Other: Impact on Illness or Injury [] Angry [] Fearful [x] Anxious [] Often cries [] Exhaustion [x] Unable to work [] Unable to attend anabaptist [] Unable to walk/stand [] Unable to read [] Unable to drive [] Unable to eat/drink [] Unable to sleep [] Unable to be with family [] Patient intubated [] Other: Summary Swelling in lower leg and ankle has a possitive attitude and well be going home soon Time spent with patient 10 mins
--- NOTE | 2021-06-15 10:08 | PC.PHAR ---
went to [facility] and did pts med rec came back to enter meds pt states he takes there were discharge orders put in so couldnt do med rec-pt states he takes warfarin 7mg on mon,wed,fri and 6mg on sat,tues,thurs,sat-what was entered didnt match what the pt states he takes-
[2021-06-15] MEDS: acetaminophen 325 mg Tablet 650 MG PO (10:13)
[2021-06-15 10:22] VITALS: BP 120/81; PULSE 101; RESP 18; TEMP 36.6; O2SAT 96
--- NOTE | 2021-06-15 10:22 | PC.NURSE ---
IV removed, Education provided, no questions or concerns, patient VS stable upon departure.
== END 2021-06-15 10:24 | disposition home or self-care (01) ==
LOC: CCL 06:09 → CSU 13:05
PROVIDERS: Internal Medicine Cardiovascular Disease; PCP Nurse Practitioner Family; Visit Provider Internal Medicine Cardiovascular Disease
DX: I42.8 Other cardiomyopathies (principal); I48.0 Paroxysmal atrial fibrillation; E11.65 Type 2 diabetes mellitus with hyperglycemia; F17.200 Nicotine dependence, unspecified, uncomplicated; R94.39 Abnormal result of other cardiovascular function study; I50.22 Chronic systolic (congestive) heart failure; E78.5 Hyperlipidemia, unspecified; I70.92 Chronic total occlusion of artery of the extremities; I70.201 Unspecified atherosclerosis of native arteries of extremities, right leg
CPT/HCPCS: 36415; 37225; 75625; 75716; 76937; 80048; 85025; 85730; 94660; C1724; C1725; C1769; C1887; C1894; J1644; J2250; J3010; J3490; J7030; Q0163; Q9967

== ENCOUNTER → 2021-06-21 10:40 | Outpatient (BNVA) | payer OTHER, SELFPAY | PROVIDERS: PCP Nurse Practitioner Family; Visit Provider Nurse Practitioner Family | DX: I73.9 Peripheral vascular disease, unspecified (principal); I48.0 Paroxysmal atrial fibrillation | CPT/HCPCS: 80048; 85610 ==

== ENCOUNTER → 2021-06-28 15:46 | Outpatient (BNVA) | payer OTHER, SELFPAY | PROVIDERS: PCP Nurse Practitioner Family; Visit Provider Internal Medicine Cardiovascular Disease | DX: I48.0 Paroxysmal atrial fibrillation (principal) | CPT/HCPCS: 85610 ==

== ENCOUNTER → 2021-07-05 16:20 | Outpatient (BNVA) | payer OTHER, SELFPAY | PROVIDERS: PCP Nurse Practitioner Family; Visit Provider Internal Medicine Cardiovascular Disease | DX: I48.0 Paroxysmal atrial fibrillation (principal); Z79.01 Long term (current) use of anticoagulants | CPT/HCPCS: 85610 ==

== ENCOUNTER → 2021-09-18 15:06 | Outpatient (BNVA) | payer OTHER, SELFPAY | PROVIDERS: PCP Nurse Practitioner Family; Visit Provider Internal Medicine Cardiovascular Disease | DX: I50.33 Acute on chronic diastolic (congestive) heart failure (principal); R06.02 Shortness of breath; I42.8 Other cardiomyopathies; I48.0 Paroxysmal atrial fibrillation; I31.3 Pericardial effusion (noninflammatory); I73.9 Peripheral vascular disease, unspecified; I42.9 Cardiomyopathy, unspecified | CPT/HCPCS: 80048; 83880 ==

== ENCOUNTER → 2021-10-10 11:53 | Outpatient (BNVA) | payer OTHER, SELFPAY | PROVIDERS: PCP Nurse Practitioner Family; Visit Provider Nurse Practitioner Family | DX: E11.65 Type 2 diabetes mellitus with hyperglycemia (principal); E11.621 Type 2 diabetes mellitus with foot ulcer; L97.509 Non-pressure chronic ulcer of other part of unspecified foot with unspecified severity; I73.9 Peripheral vascular disease, unspecified | CPT/HCPCS: 80053; 84443; 85025 ==

== ENCOUNTER 2021-10-17 15:36 | Outpatient (CLI) | payer OTHER, SELFPAY ==
--- NOTE | 2021-10-17 15:47 | XRR_ITS ---
PROCEDURE INFORMATION: Exam: XR Left Foot Exam date and time: 10/17/2021 3:53 PM Age: 56 years old Clinical indication: Condition or disease; Other: Foot ulcer; Patient HX: PT has open sore on left foot at arch. HX of diabetes; Additional info: E11.621 - type 2 diabetes mellitus with foot ulcer TECHNIQUE: Imaging protocol: XR Left foot. Views: 3 or more views. COMPARISON: CR XR knee LT 3V* [id number] 03/30/2020 2:03 PM FINDINGS: Bones/joints: Osseous structures are intact. Negative for fracture or irregular osseous erosions. Soft tissues: No subcutaneous emphysema. XR/XR foot LT min 3V* [id number] IMPRESSION: No findings to suggest osteomyelitis.
== END 2021-10-17 15:37 | disposition home or self-care (01) ==
PROVIDERS: PCP Nurse Practitioner Family; Visit Provider Nurse Practitioner Family
DX: E11.621 Type 2 diabetes mellitus with foot ulcer (principal); L97.509 Non-pressure chronic ulcer of other part of unspecified foot with unspecified severity; R71.8 Other abnormality of red blood cells; E11.65 Type 2 diabetes mellitus with hyperglycemia
CPT/HCPCS: 73630; 82607; 82746; 83036

== ENCOUNTER → 2021-10-19 15:17 | Outpatient (BNVA) | payer OTHER, SELFPAY | PROVIDERS: PCP Nurse Practitioner Family; Visit Provider Nurse Practitioner Family | DX: Z76.89 Persons encountering health services in other specified circumstances (principal) | CPT/HCPCS: 87070; 87077; 87176; 87186; 87205 ==

== ENCOUNTER 2021-11-01 11:49 | Outpatient (CLI) | payer OTHER, SELFPAY ==
--- NOTE | 2021-11-01 12:53 | USCV_ITS ---
Edward Amaro Age: 56 Gender: M : 1965 Exam Date: 11/01/2021 13:07 Ordering Phys: Italia Glez Technologist: Lv Block Exam Location: [facility] [place]_ Indication: HISTORY: c/o non-healing ulcer LEFT plantar surface x 3 weeks. DM2. Morbid obesity. smoker. No hx DVT per patient. PROCEDURES: This exam was performed in the 45 degree reverse Trendelenberg position with Valsalva maneuver and release performed to elicit venous insufficiency, if present. Venous duplex imaging was performed in only the left lower extremity. The following venous structures were evaluated: common femoral vein, profunda vein, proximal portion of the greater saphenous vein, superficial femoral vein, and the popliteal vein. In addition, the left posterior tibial vein was evaluated. Serial compression, augmentation maneuvers, and spectral Doppler flow evaluation were performed. LEFT duplex Venous Insufficiency study of the Deep and Superficial systems was carried out according to normal protocol with the patient in 45 degree reverse Trendelenberg dependent position for evaluation of the the superficial system. . FINDINGS: No evidence of DVT in the left lower extremity veins No significant venous reflux were noted on the left side CONCLUSIONS No evidence of DVT in the above-mentioned identifiable veins in the left lower extremity. No significant reflux either in the deep or superficial veins on the left side. Relatively large caliber superficial veins. Dr Adam Sepulveda MD [facility] (Electronically Signed) Final Date: 06 Nov 2021 12:59 S
== END 2021-11-01 11:50 | disposition home or self-care (01) ==
LOC: RAD 11:52
PROVIDERS: PCP Nurse Practitioner Family; Visit Provider Nurse Practitioner Family
DX: E11.621 Type 2 diabetes mellitus with foot ulcer (principal)
CPT/HCPCS: 93971

== ENCOUNTER 2021-11-08 15:17 | Outpatient (CLI) | payer OTHER, SELFPAY ==
--- NOTE | 2021-11-08 | USCV_ITS ---
AmaroEdward chan Age: 56 Gender: M : 1965 Exam Date: 11/08/2021 16:16 Ordering Phys: Italia Glez Technologist: [place] [facility] [place]: lt leg ulcer Risk Factors: Previous Vascular Surgery: RIGHT LEFT BP: 135.0 / 85.00 BP: 140.0/ 85.00 0 0 Waveform Velocity (cm/s) Velocity (cm/s) Waveform Iliac Prox 88.6 Triphasic Iliac Mid 94.6 Triphasic Iliac Distal 98.4 Triphasic REQUIREMENTS MANAGER 79.5 Triphasic SFA Prox 85.8 Triphasic SFA Mid 98.4 Triphasic SFA Dist 89.6 Triphasic POP 48.6 Triphasic GLOBAL CEO 53.0 Triphasic DPA 49.3 Triphasic LAWANDA 1.1 FINDINGS Resting LAWANDA of 1.1 on the left side. Triphasic Doppler waveforms throughout. Normal Doppler flow velocities. CONCLUSIONS No evidence of any significant arterial obstruction on the left side, based on the above findings. Dr Adam Sepulveda MD [facility] (Electronically Signed) Final Date: 09 Nov 2021 10:13 S
== END 2021-11-08 15:18 | disposition home or self-care (01) ==
PROVIDERS: PCP Nurse Practitioner Family; Visit Provider Nurse Practitioner Family
DX: E11.621 Type 2 diabetes mellitus with foot ulcer (principal)
CPT/HCPCS: 93926

== ENCOUNTER 2021-11-08 15:38 | Outpatient (CLI) | payer OTHER, SELFPAY ==
--- NOTE | 2021-11-08 16:28 | XRR_ITS ---
PROCEDURE INFORMATION: Exam: XR Chest Exam date and time: 11/08/2021 4:27 PM Age: 56 years old Clinical indication: Cough and shortness of breath; Additional info: R06.02 - shortness of breath TECHNIQUE: Imaging protocol: XR of the chest. Views: 2 views. COMPARISON: CR XR cervical spine 3V* [id number] 11/10/2020 2:03 PM FINDINGS: Lungs: Mild bronchial cuffing or vascular congestion. Mild interstitial opacities in the central lungs. 3.7 cm nodular density in the medial right lung base. Pleural spaces: Unremarkable. No pleural effusion. No pneumothorax. Heart/Mediastinum: Cardiomegaly. Bones/joints: Unremarkable. XR/XR chest 2V* [id number] IMPRESSION: 1. 3.7 cm nodular density in the medial right lung base. This could represent pneumonia but a neoplastic process is not excluded. Follow-up with a CT chest is recommended. 2. Cardiomegaly with probable mild interstitial pulmonary edema.
== END 2021-11-08 15:39 | disposition home or self-care (01) ==
LOC: RAD 15:41
PROVIDERS: PCP Nurse Practitioner Family; Visit Provider Nurse Practitioner Family
DX: R06.02 Shortness of breath (principal); R91.1 Solitary pulmonary nodule
CPT/HCPCS: 71046

== ENCOUNTER → 2021-11-23 14:24 | Outpatient (BNVA) | payer OTHER, SELFPAY | PROVIDERS: PCP Nurse Practitioner Family; Visit Provider Nurse Practitioner Family | DX: E11.621 Type 2 diabetes mellitus with foot ulcer (principal); L97.421 Non-pressure chronic ulcer of left heel and midfoot limited to breakdown of skin; I96 Gangrene, not elsewhere classified; F17.200 Nicotine dependence, unspecified, uncomplicated | CPT/HCPCS: 87070; 87077; 87176; 87186; 87205 ==

== ENCOUNTER 2021-11-24 14:24 | Outpatient (CLI) | payer OTHER, SELFPAY ==
[2021-11-24] MEDS: iohexol 300 mg/mL 100 mL Btl IV (14:59)
--- NOTE | 2021-11-24 15:00 | CTR_ITS ---
PROCEDURE INFORMATION: Exam: CT Chest With Contrast; Diagnostic Exam date and time: 11/24/2021 2:54 PM Age: 56 years old Clinical indication: Condition or disease; Lung condition and disease; Pulmonary edema; Chronic; Additional info: J81.1 - chronic pulmonary edema TECHNIQUE: Imaging protocol: Diagnostic computed tomography of the chest with contrast. Radiation optimization: All CT scans at this facility use at least one of these dose optimization techniques: automated exposure control; mA and/or kV adjustment per patient size (includes targeted exams where dose is matched to clinical indication); or iterative reconstruction. Contrast material: OMNI 300; Contrast volume: 50 ml; Contrast route: INTRAVENOUS (IV); COMPARISON: CR XR chest 2V* [id number] 11/08/2021 4:27 PM RADIATION DOSE METRICS: Total DLP (mGy-cm): 830.71 FINDINGS: Thyroid: The partially imaged bilateral thyroid lobes are unremarkable. Lungs: Unremarkable. No consolidation. No masses. Pleural spaces: No pneumothorax. No pleural effusion. Heart: Mild aortic valvular calcification is present. Atherosclerotic coronary calcifications are noted involving the LAD and LCx coronary arteries. Unremarkable left atrium and pulmonary veins. Lymph nodes: Right lower paratracheal lymph node measuring 7 mm short axis. Subcarinal lymph node measuring 10.7 mm. Vasculature: Mild aortic arch and branch atherosclerotic calcification without ectasia. Azygous arch valvular calcifications, normal variant. Adrenal glands: Left adrenal 3.4 x 2.7 cm and 4.2 x 2.3 cm and 3.2 cm low-attenuation masses (-3 to -6.5 Hounsfield units). Right adrenal low-attenuation nodule measuring 2.4 cm (-3.8 Hounsfield units). Kidneys and ureters: Left renal 23 mm benign cyst. Bones/joints: No destructive bony process identified. Thoracic spine vertebral body marginal osteophytes are noted at multiple levels. Soft tissues: Unremarkable. Other findings: Calcified lobulated right epiphrenic adipose epiphrenic nodule measuring 3.5 x 4[address]/CT chest w con* [id number] IMPRESSION: 1. Partially calcified right epiphrenic probably shad mass. Comparison with prior studies recommended, if available. Otherwise followup recommended. 2. No current evidence of pulmonary edema. 3. Coronary atherosclerosis. 4. Bilateral adrenal lipomatous adenomas. 5. Left renal benign cyst. No follow-up imaging is recommended. COMMENTS: Consistent with the [place] [employer]'s Incidental Findings Committee white paper (J Am Sylvia Radiol 2018): Any incidental renal lesion less than 1 cm or classified as too small to characterize, or any incidental cystic renal lesion characterized as simple-appearing, is likely benign. No follow-up imaging is recommended for these lesions per consensus recommendations based on imaging criteria.
== END 2021-11-24 14:25 | disposition home or self-care (01) ==
LOC: RAD 14:25
PROVIDERS: PCP Nurse Practitioner Family; Visit Provider Nurse Practitioner Family
DX: J81.1 Chronic pulmonary edema (principal); R93.89 Abnormal findings on diagnostic imaging of other specified body structures; I50.9 Heart failure, unspecified; R06.02 Shortness of breath
CPT/HCPCS: 71260

== ENCOUNTER 2021-12-08 11:43 | Outpatient (CLI) | payer OTHER, SELFPAY ==
--- NOTE | 2021-12-08 11:55 | USCV_ITS ---
Edward Amaro Age: 56 Gender: M : 1965 Exam Date: 12/08/2021 12:00 Ordering Phys: Brady Gaytan MD (Andy) ([email or web address]) Technologist: Lakshmi Nathan Exam Location: [facility] [place] Indication: Heart Failure BP: 111 / 73 HR: 80 Rhythm: Sinus Technical Quality: Adequate MEASUREMENTS (Male / Female) Normal Values 2D ECHO LV Diastolic Diameter PLAX 6.1 cm 4.2 - 5.9 / 3.9 - 5.3 cm LV Systolic Diameter PLAX 3.7 cm LV Chamber Size 5.5 cm IVS Diastolic Thickness 1.9 cm 0.6 - 1.0 / 0.6 - 0.9 cm IVS Systolic Thickness 1.9 cm LVPW Diastolic Thickness 1.5 cm 0.6 - 1.0 / 0.6 - 0.9 cm LVPW Systolic Thickness 2.0 cm RV Chamber Size 2.2 cm LVOT Diameter 2.1 cm LV Ejection Fraction 2D Teich 69.1 % LV Ejection Fraction MOD 2C 58.2 % LV Ejection Fraction 2C AL 59.4 % LA Diameter 4.7 cm LA Width 3.6 cm LA Height 5.5 cm RA Width 4.7 cm RA Height 5.4 cm Aorta at Sinotubular Diameter 3.0 cm IVC Diameter 2.5 cm M-MODE Aortic Annulus Diameter 2.7 cm LA Ao Ratio MM 2.1 MV E Point Septal Separation 1.5 cm FINDINGS Left Ventricle Normal LV size and ejection fraction 58%. No gross wall motion normalities noted. Right Ventricle The right ventricle is normal in size and function. Right Atrium The right atrium is normal in size. Left Atrium The left atrium is normal in size. Mitral Valve No gross abnormalities noted Aortic Valve The aortic valve appears to be thickened Tricuspid Valve No gross abnormalities noted Pulmonic Valve No gross abnormalities noted Pericardium No pericardial effusion. Aorta Normal aortic annulus size. IVC Normal dimension CONCLUSIONS Normal LV size and ejection fraction 58%. No gross wall motion normalities noted. Normal cardiac chamber sizes. The aortic valve appears to be thickened. No obvious intracardiac masses No pericardial effusion. Technically somewhat difficult study Compared to the study from 12/30/2019, there is significant improvement in the LV ejection fraction. Dr Adam Sepulveda MD [facility] (Electronically Signed) Final Date: 09 December 2021 11:22 S
== END 2021-12-08 11:44 | disposition home or self-care (01) ==
LOC: RAD 11:45
PROVIDERS: PCP Nurse Practitioner Family; Visit Provider Internal Medicine Cardiovascular Disease
DX: I50.9 Heart failure, unspecified (principal)
CPT/HCPCS: 93308

== ENCOUNTER → 2021-12-19 16:16 | Outpatient (BNVA) | payer OTHER, SELFPAY | PROVIDERS: PCP Nurse Practitioner Family; Visit Provider Internal Medicine Cardiovascular Disease | DX: I50.33 Acute on chronic diastolic (congestive) heart failure (principal); R06.02 Shortness of breath | CPT/HCPCS: 80048; 83880 ==

== ENCOUNTER 2022-01-05 06:00 | Outpatient (CLI) | payer OTHER, SELFPAY ==
[2022-01-05 17:13] LABS: Anion Gap 15.6 (5-19); Blood Urea Nitrogen 10 mg/dL (6-20); Calcium 8.2 mg/dL (8.5-10.5); Carbon Dioxide 24 mmol/L (22-29); Chloride 103 mmol/L (98-107); Glomerular Filtration Rate 116.7 mL/min (90-130); Glucose 122 mg/dL (65-115); NT Pro B Type Natriuretic Pept 914 pg/mL (0-125); Osmolality Calculated 288 mOsm/kg (285-295); Potassium 3.6 mmol/L (3.5-5.1); Sodium 139 mmol/L (136-145)
== END 2022-01-05 06:01 | disposition home or self-care (01) ==
PROVIDERS: PCP Nurse Practitioner Family; Visit Provider Internal Medicine Cardiovascular Disease
DX: I42.8 Other cardiomyopathies (principal); I48.0 Paroxysmal atrial fibrillation; I50.22 Chronic systolic (congestive) heart failure; R53.83 Other fatigue; E11.65 Type 2 diabetes mellitus with hyperglycemia; I25.10 Atherosclerotic heart disease of native coronary artery without angina pectoris
CPT/HCPCS: 36415; 80048; 83880

== ENCOUNTER 2022-02-15 13:28 | Outpatient (CLI) | payer OTHER, SELFPAY ==
[2022-02-15 13:59] LABS: INR 4.38 (0.83-1.21); Prothrombin Time (Patient) 42.1 Seconds (12.0-15.1)
== END 2022-02-15 13:29 | disposition home or self-care (01) ==
PROVIDERS: PCP Nurse Practitioner Family; Visit Provider Internal Medicine Cardiovascular Disease
DX: I48.0 Paroxysmal atrial fibrillation (principal)
CPT/HCPCS: 85610

== ENCOUNTER 2022-03-07 16:05 | Outpatient (CLI) | payer OTHER, SELFPAY ==
--- NOTE | 2022-03-07 16:11 | XR_ITS ---
WS: [id number] Exam: XR knee LT 3V* [id number] Date/Time of Exam: 03/07/2022 4:37 PM Reason For Exam: M25.562 - Pain in left knee Comparison 03/30/2020. No acute fracture or dislocation. Moderate degenerative narrowing of the medial joint compartment. No joint effusion. Mild spurring of the posterior patella. XR/XR knee LT 3V* [id number] IMPRESSION: 1. No fracture or joint effusion. 2. Moderate degenerative change of the medial joint compartment.
--- NOTE | 2022-03-07 16:11 | XR_ITS ---
WS: [id number] Exam: XR foot LT min 3V* [id number] Date/Time of Exam: 03/07/2022 4:37 PM Reason For Exam: M79.675 - Pain in left toe(s) Comparison 10/17/2021. No fracture or dislocation. No soft tissue foreign bodies are seen. Minimal degenerative changes in t he midfoot joints and IP joints. Calcaneal spurs. XR/XR foot LT min 3V* [id number] IMPRESSION: 1. No fracture or bone destruction. Minimal degenerative changes.
== END 2022-03-07 16:06 | disposition home or self-care (01) ==
LOC: RAD 16:06
PROVIDERS: PCP Nurse Practitioner Family; Visit Provider Nurse Practitioner Family
DX: M79.675 Pain in left toe(s) (principal); M25.562 Pain in left knee
CPT/HCPCS: 73562; 73630

== ENCOUNTER → 2022-04-09 15:34 | Outpatient (BNVA) | payer OTHER, SELFPAY | PROVIDERS: PCP Nurse Practitioner Family; Visit Provider Internal Medicine | DX: E27.8 Other specified disorders of adrenal gland (principal) | CPT/HCPCS: 80053; 80061; 82044; 82088; 82384; 82530; 82570; 83036; 84244 ==

== ENCOUNTER 2022-04-12 07:42 | Outpatient (CLI) | payer OTHER, SELFPAY ==
[2022-04-12 08:38] LABS: Urine Creatinine 71 mg/dL (39-259)
[2022-04-12 08:43] LABS: Creatinine Urine, Random 248 mg/dL (39-259); Microalbum Creatinine Ratio Ur 8 mg/dL (0-20); Microalbumin Random Urine 2 ug/dL (0-20)
[2022-04-12 08:52] LABS: Creatinine 24 Hour Urine 1384.5 mg/dL (955-2936); Total Volume Urine 1950 ml
[2022-04-18 22:22] LABS: Calculated Total (E+NE) 51 mcg/24 h (26-121)
[2022-04-19 10:47] LABS: Free Cortisol Urine 12.6 mcg/24 h (4.0-50.0); Total Urine 1925 mL; Urine Creatinine 1.34 g/24 h (0.50-2.15)
== END 2022-04-12 07:43 | disposition home or self-care (01) ==
LOC: LAB 07:49
PROVIDERS: PCP Nurse Practitioner Family; Visit Provider Internal Medicine
DX: E27.8 Other specified disorders of adrenal gland (principal); E11.9 Type 2 diabetes mellitus without complications
CPT/HCPCS: 82044; 82384; 82530; 82570

== ENCOUNTER 2022-07-06 09:29 | Outpatient (CLI) | payer OTHER, SELFPAY ==
--- NOTE | 2022-07-06 09:30 | USCV_ITS ---
AmaroEdward Age: 57 Gender: M : 1965 Exam Date: 07/06/2022 09:43 Ordering Phys: Adam Sepulveda MD ([email or web address]) Technologist: CT [place]am [place] [facility] [place]ication: HISTORY: PROCEDURES: FINDINGS: no dvt,svt or relux noted, normal insufficiency exam The veins were found to be easily compressible with spontaneous blood flow. Non pulsatile flow pattern. CONCLUSIONS No evidence of DVT in the above-mentioned identifiable veins. No Significant venous reflux were noted either on the supraventricular in the deep veins. The superficial veins are found to be patent and mostly less than 1 cm deep from the surface Dr Adam Sepulveda MD [facility] (Electronically Signed) Final Date: 08 July 2022 19:06 S
== END 2022-07-06 09:30 | disposition home or self-care (01) ==
PROVIDERS: PCP Family Medicine Adult Medicine; Visit Provider Internal Medicine Cardiovascular Disease
DX: I73.9 Peripheral vascular disease, unspecified (principal); Z98.890 Other specified postprocedural states
CPT/HCPCS: 93970

== ENCOUNTER → 2022-07-12 10:11 | Outpatient (BNVA) | payer OTHER, SELFPAY | PROVIDERS: PCP Family Medicine Adult Medicine; Visit Provider Family Medicine Adult Medicine | DX: I48.0 Paroxysmal atrial fibrillation (principal); E11.9 Type 2 diabetes mellitus without complications; E78.5 Hyperlipidemia, unspecified; I25.10 Atherosclerotic heart disease of native coronary artery without angina pectoris; G47.33 Obstructive sleep apnea (adult) (pediatric); Z99.89 Dependence on other enabling machines and devices | CPT/HCPCS: 80053; 80061; 83036; 84403; 84443; 85025 ==

== ENCOUNTER 2022-07-20 10:30 | Outpatient (CLI) | payer MEDICARE, OTHER, SELFPAY ==
[2022-07-20 10:48] VITALS: BMI 38.5
--- NOTE | 2022-07-20 10:53 | NMCV_ITS ---
NM wander perf SPECT r/s* [id number] Edward Amaro Age: 57 Gender: M : 1965 Exam Date: 07/20/2022 11:48 Ordering Phys: Adam Sepulveda MD ([email or web address]) Technologist: TONY Dwyer Exam Location: [facility] Indications: CORONARY ANGIOPLASTY STATUS STRESS TEST [facility] IMAGE PROTOCOL Rest/Stress 1 Lexiscan Day Radiopharmaceutical Dose (mCi) Administration Site Administered by Rest: Tc-99m 10.8 IV TONY Lowry Sestamibi Stress:Tc-99m 32.5 IV TONY Lowry Sestamibi Rest: 20-Jul-2022 60 Discovery 630 Stress: 20-Jul-2022 30 Discovery 630 0.4mg Lexiscan. Images obtained in supine and prone position. SPECT RESULTS Technical Quality: Excellent Raw Data Analysis: Normal Image Corrections: No attenuation or motion correction applied Summed Stress Score: 5 Summed Rest Score: 4 Summed Difference Score: 2 PERFUSION FINDINGS There is a small in size, mostly fixed perfusion defect noted in apical lateral, apical and apical inferior florence. This is consistent with small sized prior infarct noted in the left circumflex and RCA territory with minimal igor- infarct ischemia. FUNCTIONAL RESULTS (calculated via Gated SPECT) Stress Image LV EF (%): 33 Stress EDV (mL):215 TID: 1.04 Stress ESV (mL):144 FUNCTIONAL FINDINGS: LV systolic function is moderate to severely reduced with EF of 33% IMPRESSIONS 1. Abnormal myocardial perfusion imaging with small sized prior infarcts noted in left circumflex and RCA territory with minimal igor-infarct ischemia seen in both territories. 2. LV systolic Function is moderate to severely reduced EF of 33% Timothy Field MD (Electronically Signed) Final Date: 20 July 2022 14:09 S
--- NOTE | 2022-07-20 10:53 | ECG_ITS ---
[facility] Test Date: 2022-07-20 Pat Name: Edward Amaro Department: Room: Gender: Male Pacs Administrator: : 1965 Requested By: Adam Sepulveda Order Number: [id number] Ronna MD: Timothy Field M.D. Interpretive Statements NAME OF STUDY: LEXISCAN SESTAMIBI STRESS TEST INDICATION: [Chest Pain, ] Procedure: At the baseline, the blood pressure was 112/72 mmHg with a heart rate of 68 bpm. The electrocardiogram showed atrial fibrillation with no significant ST-T wave changes. The Lexiscan was infused over a period of 20 seconds. A total of 0.4 mg of Lexiscan was infused. The stress phase was continued for a total of 5 minutes. Heart rate was at the end of stress phase was 74 bpm and a blood pressure of 119/82 mmHg. The EKG at the peak infusion revealed atrial fibrillation with no significant ST-T wave changes. Sestamibi was injected 20 seconds after the Lexiscan infusion. Blood pressure at the end of recovery phase was 113/86 mmHg with a heart rate of 77 bpm. Conclusion: 1. Normal EKG response to Lexiscan infusion 2. No Lexiscan induced chest pain or cardiac arrhythmia. 3. Normal blood pressure and heart rate response. 4. Sestamibi/sestamibi perfusion scan pending; see separate report. Electronically Signed On 08-02-2022 11:30:46 PRESSFITTER by Timothy Field M.D. [email or web address]
[2022-07-20] MEDS: regadenoson 0.4 Mg/5 ml Syringe IVP (12:20)
[2022-07-20 12:36] VITALS: BP 113/86; PULSE 87
== END 2022-07-20 10:31 | disposition home or self-care (01) ==
PROVIDERS: PCP Family Medicine Adult Medicine; Visit Provider Internal Medicine Cardiovascular Disease
DX: R06.02 Shortness of breath (principal); I50.9 Heart failure, unspecified; R07.9 Chest pain, unspecified; Z98.61 Coronary angioplasty status
CPT/HCPCS: 36415; 78452; 93017; 96374; A9500; J2785

== ENCOUNTER 2022-08-14 07:19 | Outpatient (CLI) | payer MEDICARE, OTHER, SELFPAY ==
--- NOTE | 2022-08-14 07:15 | USCV_ITS ---
Edward Amaro Age: 57 Gender: M : 1965 Exam Date: 08/14/2022 07:42 Ordering Phys: Adam Sepulveda MD ([email or web address]) Technologist: Jero Bishop Exam Location: [facility] [place] Indication: PAD s/p stent Risk Factors: Previous Vascular Surgery: RIGHT LEFT BP: 91.00 / 64.00 BP: 109.0/ 65.00 0 Waveform Velocity (cm/s) Velocity (cm/s) Waveform Triphasic 113.5 Iliac Prox 183.3 Triphasic Triphasic 150.4 Iliac Mid 122.7 Triphasic Triphasic 102.5 Iliac Distal 113.4 Triphasic CASH APPLICATIONS COORDINATOR 113.4 Triphasic SFA Prox 115.0 Triphasic SFA Mid 102.5 Triphasic SFA Dist 166.2 Triphasic Monophasic 34.2 POP 116.5 Triphasic ENGINE TURNER 78.6 Triphasic Monophasic 34.7 DPA 51.3 Triphasic 1.1 LAWANDA 0.8 FINDINGS The right iliacs appear to have triphasic flow. There appears to be no flow from right CASH APPLICATIONS COORDINATOR- SFA DIST. There appears to be collateral flow in the right POP. No flow in the right ENGINE TURNER. Flow is in the DPA. The left leg appears to have triphasic flow throughout. Resting LAWANDA of 1.1 on the right and 0.8 on the left. Moderate diffuse plaques in the iliac arteries bilaterally Monophasic and continuous flow pattern in the popliteal and dorsalis pedis artery on the right side. CONCLUSIONS 1. Features of total occlusion of the common femoral and superficial femoral artery on the right side with possible collateral filling in the popliteal and dorsalis pedis artery. The posterior tibial artery on the right side also appears to be occluded. Normal resting LAWANDA on the right side. 2. Normal Doppler flow pattern on the left side with slightly diminished resting LAWANDA suggesting mild peripheral artery disease. Mild to moderate diffuse plaque in the iliac and femoral artery on the left side Dr Adam Sepulveda MD LOCATED WITHIN [facility] (Electronically Signed) Final Date: 17 August 2022 16:29 S
== END 2022-08-14 07:20 | disposition home or self-care (01) ==
LOC: RAD 07:21
PROVIDERS: PCP Family Medicine Adult Medicine; Visit Provider Internal Medicine Cardiovascular Disease
DX: I73.9 Peripheral vascular disease, unspecified (principal)
CPT/HCPCS: 93925

== ENCOUNTER → 2022-09-05 14:10 | Outpatient (BNVA) | payer MEDICARE, OTHER, SELFPAY | PROVIDERS: PCP Family Medicine Adult Medicine; Visit Provider Internal Medicine | DX: E11.59 Type 2 diabetes mellitus with other circulatory complications (principal); E27.8 Other specified disorders of adrenal gland; I73.9 Peripheral vascular disease, unspecified; I50.9 Heart failure, unspecified; Z79.84 Long term (current) use of oral hypoglycemic drugs; I25.10 Atherosclerotic heart disease of native coronary artery without angina pectoris | CPT/HCPCS: 99214 ==

== ENCOUNTER 2022-10-05 19:10 | Emergency (ER) | payer MEDICARE, OTHER, SELFPAY ==
[2022-10-05 19:11] VITALS: BP 153/82; PULSE 94; RESP 19; TEMP 36.4; O2SAT 99
== END 2022-10-05 21:08 | disposition left against medical advice (07) ==
PROVIDERS: Emergency Provider Family Medicine; PCP Family Medicine Adult Medicine
DX: Z53.21 Procedure and treatment not carried out due to patient leaving prior to being seen by health care provider (principal)

== ENCOUNTER → 2022-12-13 14:01 | Outpatient (BNVA) | payer MEDICARE, SELFPAY | PROVIDERS: PCP Family Medicine Adult Medicine; Visit Provider Internal Medicine | DX: E11.59 Type 2 diabetes mellitus with other circulatory complications (principal); I73.9 Peripheral vascular disease, unspecified; I25.10 Atherosclerotic heart disease of native coronary artery without angina pectoris; E27.8 Other specified disorders of adrenal gland; Z79.84 Long term (current) use of oral hypoglycemic drugs | CPT/HCPCS: 99214 ==

== ENCOUNTER → 2022-12-27 12:41 | Outpatient (BNVA) | payer MEDICARE, SELFPAY | PROVIDERS: PCP Family Medicine Adult Medicine; Visit Provider Nurse Practitioner Family | DX: I25.10 Atherosclerotic heart disease of native coronary artery without angina pectoris (principal); I73.9 Peripheral vascular disease, unspecified; I50.22 Chronic systolic (congestive) heart failure; I48.0 Paroxysmal atrial fibrillation; I42.8 Other cardiomyopathies; F17.210 Nicotine dependence, cigarettes, uncomplicated; Z79.01 Long term (current) use of anticoagulants | CPT/HCPCS: 99214 ==

== ENCOUNTER → 2023-06-13 10:00 | Outpatient (BNVA) | payer MEDICARE, SELFPAY | PROVIDERS: PCP Family Medicine Adult Medicine; Visit Provider Internal Medicine | DX: E11.9 Type 2 diabetes mellitus without complications (principal); E27.8 Other specified disorders of adrenal gland; I73.9 Peripheral vascular disease, unspecified; I25.10 Atherosclerotic heart disease of native coronary artery without angina pectoris; K22.5 Diverticulum of esophagus, acquired; Z79.84 Long term (current) use of oral hypoglycemic drugs | CPT/HCPCS: 99214 ==

== ENCOUNTER → 2023-06-27 14:20 | Outpatient (BNVA) | payer MEDICARE, SELFPAY | PROVIDERS: PCP Family Medicine Adult Medicine; Visit Provider Internal Medicine Cardiovascular Disease | DX: R00.2 Palpitations (principal); I25.10 Atherosclerotic heart disease of native coronary artery without angina pectoris; I48.0 Paroxysmal atrial fibrillation; Z79.01 Long term (current) use of anticoagulants; I42.8 Other cardiomyopathies; I50.22 Chronic systolic (congestive) heart failure; F17.200 Nicotine dependence, unspecified, uncomplicated; I73.9 Peripheral vascular disease, unspecified | CPT/HCPCS: 99214 ==

== ENCOUNTER 2023-08-09 13:39 | Outpatient (CLI) | payer MEDICARE, SELFPAY ==
--- NOTE | 2023-08-09 14:00 | CTR_ITS ---
PROCEDURE INFORMATION: Exam: CT Abdomen And Pelvis Without And With Contrast Exam date and time: 08/09/2023 1:57 PM Age: 58 years old Clinical indication: Condition or disease; Other: Diverticulum of esophagus; Additional info: Diverticulum, please have done in 2.5 months TECHNIQUE: Imaging protocol: Computed tomography of the abdomen and pelvis without and with contrast. Radiation optimization: All CT scans at this facility use at least one of these dose optimization techniques: automated exposure control; mA and/or kV adjustment per patient size (includes targeted exams where dose is matched to clinical indication); or iterative reconstruction. Contrast material: OMNI 350; Contrast volume: 95 ml; Contrast route: INTRAVENOUS (IV); COMPARISON: CT chest w con* [id number] 11/24/2021 2:54 PM RADIATION DOSE METRICS: Total DLP (mGy-cm): 1206.23 FINDINGS: Lungs: Lung bases are clear. No pleural effusion. Liver: Normal. No mass. Gallbladder and bile ducts: Normal. No calcified stones. No ductal dilation. Pancreas: Normal. No ductal dilation. Spleen: Normal. No splenomegaly. Adrenal glands: There is stable bilateral adrenal enlargement. Kidneys and ureters: 2.8 cm simple cyst of the left kidney. 3 cm simple cyst of the right kidney. Stomach and bowel: Unremarkable. No obstruction. No mucosal thickening. Appendix: No evidence of appendicitis. Intraperitoneal space: Unremarkable. No free air. No significant fluid collection. Vasculature: Unremarkable. No abdominal aortic aneurysm. Lymph nodes: There is a 4.7 cm right epiphrenic lymph node that is partially calcified. Urinary bladder: Unremarkable as visualized. Reproductive: Unremarkable as visualized. Bones/joints: Unremarkable. No acute fracture. Soft tissues: Unremarkable. CT/CT abdomen pelvis wo/w [id number] IMPRESSION: 1. Stable partially calcified right epiphrenic lymph node 2. Stable adrenal enlargement 3. A benign renal cyst or cysts have been detected. No further follow-up imaging is required. COMMENTS: Consistent with the [employer]'s Incidental Findings Committee white paper (J Am Sylvia Radiol 2018): Any incidental renal lesion less than 1 cm or classified as too small to characterize, or any incidental cystic renal lesion characterized as simple-appearing, is likely benign. No follow-up imaging is recommended for these lesions per consensus recommendations based on imaging criteria.
[2023-08-09] MEDS: iohexol 350 mg/mL 500 mL Btl (per mL) IV (14:07)
== END 2023-08-09 13:40 | disposition home or self-care (01) ==
LOC: RAD 13:40
PROVIDERS: PCP Family Medicine Adult Medicine; Visit Provider Internal Medicine
DX: K22.5 Diverticulum of esophagus, acquired (principal); E27.8 Other specified disorders of adrenal gland; N28.1 Cyst of kidney, acquired
CPT/HCPCS: 74178; Q9967

== ENCOUNTER 2023-08-15 13:15 | Outpatient (CLI) | payer MEDICARE, SELFPAY ==
--- NOTE | 2023-08-15 13:25 | CTR_ITS ---
PROCEDURE INFORMATION: Exam: CT Chest With Contrast; Diagnostic Exam date and time: 08/15/2023 1:48 PM Age: 58 years old Clinical indication: Other: Esophageal diverticulum, adrenal gland nodule; Additional info: Esophageal diverticulum, adrenal gland nodule, esophageal diverticulum TECHNIQUE: Imaging protocol: Diagnostic computed tomography of the chest with contrast. Radiation optimization: All CT scans at this facility use at least one of these dose optimization techniques: automated exposure control; mA and/or kV adjustment per patient size (includes targeted exams where dose is matched to clinical indication); or iterative reconstruction. Contrast material: OMNI 350; Contrast volume: 95 ml; Contrast route: INTRAVENOUS (IV); COMPARISON: CT chest w con* [id number] 11/24/2021 2:54 PM RADIATION DOSE METRICS: Total DLP (mGy-cm): 756.08 FINDINGS: Thyroid: Similar hypodense lesion in the left thyroid lobe measuring 1.3 cm. Lungs: There is similar apical predominant subpleural interstitial changes. Pleural spaces: Unremarkable. No pneumothorax. No pleural effusion. Heart: Unremarkable. No cardiomegaly. No pericardial effusion. Lymph nodes: Unremarkable. No enlarged lymph nodes. Vasculature: There are coronary and aortic arch calcifications. There is mild degenerative disease of thoracic spine. Mild loss of height of the T4 vertebral body. Adrenal glands: Stable bilateral adrenal nodules measuring 3.1 x 1.8 cm on the right side and 3.9 x 3.6 cm on the left side, most consistent with lipid rich adenomas. Kidneys and ureters: Nonobstructing stone in the interpolar region of the left kidney measuring 2 mm. Bilateral renal cysts measuring up to 2.5 cm on the left side. Bones/joints: There is a Schmorl's node of the upper endplate of the T9 vertebral body. There are multilevel anterior bridging osteophytes of the thoracic spine. Soft tissues: Similar partially calcified soft tissue lesion measuring 4.1 x 3.1 cm in the right epiphrenic adipose tissues. Mild bilateral gynecomastia. CT/CT chest w con* [id number] IMPRESSION: 1. Similar calcified right epiphrenic shad mass. 2. Stable bilateral adrenal fat containing adenomas. 3. No esophageal diverticulum. COMMENTS: Consistent with the [employer]'s Incidental Findings Committee white paper (J Am Sylvia Radiol 2018): Any incidental renal lesion less than 1 cm or classified as too small to characterize, or any incidental cystic renal lesion characterized as simple-appearing, is likely benign. No follow-up imaging is recommended for these lesions per consensus recommendations based on imaging criteria.
[2023-08-15] MEDS: iohexol 350 mg/mL 500 mL Btl (per mL) IV (14:10)
== END 2023-08-15 13:16 | disposition home or self-care (01) ==
LOC: RAD 13:19
PROVIDERS: PCP Family Medicine Adult Medicine; Visit Provider Internal Medicine
DX: K22.5 Diverticulum of esophagus, acquired (principal); E27.8 Other specified disorders of adrenal gland
CPT/HCPCS: 71260; Q9967

== ENCOUNTER → 2023-09-10 07:42 | Outpatient (BNVA) | payer MEDICARE, SELFPAY | PROVIDERS: PCP Family Medicine Adult Medicine; Visit Provider Internal Medicine | DX: E11.9 Type 2 diabetes mellitus without complications (principal); E27.8 Other specified disorders of adrenal gland; I73.9 Peripheral vascular disease, unspecified; I25.10 Atherosclerotic heart disease of native coronary artery without angina pectoris; E04.1 Nontoxic single thyroid nodule; Z79.84 Long term (current) use of oral hypoglycemic drugs | CPT/HCPCS: 99214 ==

== ENCOUNTER → 2023-12-11 10:45 | Outpatient (BNVA) | payer MEDICARE, SELFPAY | PROVIDERS: PCP Family Medicine Adult Medicine; Visit Provider Internal Medicine | DX: E11.9 Type 2 diabetes mellitus without complications (principal); E04.1 Nontoxic single thyroid nodule; I25.10 Atherosclerotic heart disease of native coronary artery without angina pectoris; E78.5 Hyperlipidemia, unspecified; E27.8 Other specified disorders of adrenal gland; I73.9 Peripheral vascular disease, unspecified; K22.5 Diverticulum of esophagus, acquired; Z79.84 Long term (current) use of oral hypoglycemic drugs | CPT/HCPCS: 99214 ==

== ENCOUNTER 2023-12-12 13:35 | Outpatient (CLI) | payer MEDICARE, SELFPAY ==
--- NOTE | 2023-12-12 13:30 | US_ITS ---
WS: [id number] THYROID ULTRASOUND HISTORY: thyroid nodules COMPARISON: No similar studies. Right lobe: 1.8 cm x 1.9 cm x 4.3 cm (w x ap x l). Volume: 7.0 cm3. Very slightly enlarged and heterogeneous thyroid. There are a few tiny colloid cyst. No mass. No colo r Doppler imaging submitted. Left lobe: 1.7 cm x 1.7 cm x 4.1 cm (w x ap x l). Volume: 5.9 cm3. Normal size LEFT thyroid. Mild colloid cyst inferior pole 1.4 x 1.3 x 1.6 cm. No increased vascularit y within the cyst. There are a few additional smaller cysts. Isthmus: 1.0 cm. US/US thyroid [id number] IMPRESSION: 1. Bilateral thyroid colloid cysts. No solid mass. 2. Limited Doppler evaluation as no color Doppler of the thyroid has been subm itted.
== END 2023-12-12 13:36 | disposition home or self-care (01) ==
LOC: RAD 13:36
PROVIDERS: PCP Family Medicine Adult Medicine; Visit Provider Internal Medicine
DX: E04.1 Nontoxic single thyroid nodule (principal)
CPT/HCPCS: 76536

== ENCOUNTER 2023-12-20 15:29 | Outpatient (CLI) | payer MEDICARE, SELFPAY ==
[2023-12-20 16:10] LABS: Estmated Average Glucose 126
[2023-12-20 16:16] LABS: Creatinine Urine, Random 142 mg/dL (39-259); Microalbum Creatinine Ratio Ur 7 mg/dL (0-20); Microalbumin Random Urine 1 ug/dL (0-20)
[2023-12-20 16:18] LABS: Alanine Aminotransferase 14 U/L (0-41); Albumin Level 3.7 g/dL (3.5-5.2); Alkaline Phosphatase 106 U/L (40-130); Anion Gap 13.2 (5-19); Aspartate Amino Transferase 12 U/L (0-40); Blood Urea Nitrogen 9 mg/dL (6-20); Calcium 8.7 mg/dL (8.5-10.5); Carbon Dioxide 26 mmol/L (22-29); Chloride 105 mmol/L (98-107); Chol HDL Ratio 2.37 mg/dL (1.0-5.00); Cholesterol 109 mg/dL (0-200); Free T4 Free Thyroxine 1.12 ng/dL (0.82-1.77); Globulin 3.3 g/dL (1.3-4.6); Glomerular Filtration Rate 115.8 mL/min (90-130); Glucose 102 mg/dL (65-115); HDL Cholesterol 46 mg/dL (60-100); LDL Cholesterol Calculated 39 mg/dL (50-129); LDL HDL Ratio 0.85 RATIO (0.00-3.22); Osmolality Calculated 289 mOsm/kg (285-295); Potassium 4.2 mmol/L (3.5-5.1); Sodium 140 mmol/L (136-145); Total Bilirubin 0.4 mg/dL (0.15-1.2); Triglycerides 120 mg/dL (0-150)
== END 2023-12-20 15:30 | disposition home or self-care (01) ==
LOC: LAB 15:32
PROVIDERS: PCP Family Medicine Adult Medicine; Visit Provider Internal Medicine
DX: E11.9 Type 2 diabetes mellitus without complications (principal); E04.1 Nontoxic single thyroid nodule; I25.10 Atherosclerotic heart disease of native coronary artery without angina pectoris; E78.5 Hyperlipidemia, unspecified
CPT/HCPCS: 80053; 80061; 82044; 83036; 84439; 84443

== ENCOUNTER → 2024-01-16 08:53 | Outpatient (BNVA) | payer MEDICARE, SELFPAY | PROVIDERS: PCP Family Medicine Adult Medicine; Visit Provider Nurse Practitioner Family | DX: I25.10 Atherosclerotic heart disease of native coronary artery without angina pectoris (principal); I48.0 Paroxysmal atrial fibrillation; Z79.01 Long term (current) use of anticoagulants; I50.22 Chronic systolic (congestive) heart failure; Z72.0 Tobacco use | CPT/HCPCS: 99214 ==

== ENCOUNTER → 2024-01-17 12:59 | Outpatient (BNVA) | payer MEDICARE, SELFPAY | PROVIDERS: PCP Family Medicine Adult Medicine; Visit Provider Podiatrist Foot & Ankle Surgery | DX: L60.3 Nail dystrophy (principal); I73.9 Peripheral vascular disease, unspecified; G62.9 Polyneuropathy, unspecified; E11.42 Type 2 diabetes mellitus with diabetic polyneuropathy; Z79.84 Long term (current) use of oral hypoglycemic drugs | CPT/HCPCS: 11721; 99203 ==

== ENCOUNTER → 2024-03-20 11:06 | Outpatient (BNVA) | payer MEDICARE, SELFPAY | PROVIDERS: PCP Family Medicine Adult Medicine; Visit Provider Podiatrist Foot & Ankle Surgery | DX: L60.3 Nail dystrophy (principal); I73.9 Peripheral vascular disease, unspecified; G62.9 Polyneuropathy, unspecified; E11.42 Type 2 diabetes mellitus with diabetic polyneuropathy; Z79.84 Long term (current) use of oral hypoglycemic drugs | CPT/HCPCS: 11721 ==

== ENCOUNTER → 2024-05-25 13:24 | Outpatient (BNVA) | payer MEDICARE, SELFPAY | PROVIDERS: PCP Family Medicine Adult Medicine; Visit Provider Podiatrist Foot & Ankle Surgery | DX: L60.3 Nail dystrophy (principal); I73.9 Peripheral vascular disease, unspecified; G62.9 Polyneuropathy, unspecified; E11.42 Type 2 diabetes mellitus with diabetic polyneuropathy; Z79.84 Long term (current) use of oral hypoglycemic drugs | CPT/HCPCS: 11721 ==

== ENCOUNTER → 2024-06-11 11:30 | Outpatient (BNVA) | payer MEDICARE, SELFPAY | PROVIDERS: PCP Family Medicine Adult Medicine; Visit Provider Internal Medicine | DX: E11.9 Type 2 diabetes mellitus without complications (principal); E78.5 Hyperlipidemia, unspecified; E04.1 Nontoxic single thyroid nodule; Z79.84 Long term (current) use of oral hypoglycemic drugs | CPT/HCPCS: 99214 ==

== ENCOUNTER → 2024-07-28 13:15 | Outpatient (BNVA) | payer MEDICARE, SELFPAY | PROVIDERS: PCP Family Medicine Adult Medicine; Visit Provider Podiatrist Foot & Ankle Surgery | DX: L60.3 Nail dystrophy (principal); I73.9 Peripheral vascular disease, unspecified; G62.9 Polyneuropathy, unspecified; E11.42 Type 2 diabetes mellitus with diabetic polyneuropathy; Z79.84 Long term (current) use of oral hypoglycemic drugs | CPT/HCPCS: 11721 ==

== ENCOUNTER → 2024-09-10 12:37 | Outpatient (BNVA) | payer MEDICARE, SELFPAY | PROVIDERS: PCP Family Medicine Adult Medicine; Visit Provider Internal Medicine | DX: E11.9 Type 2 diabetes mellitus without complications (principal) | CPT/HCPCS: 36415; 80053; 80061; 82044; 83036 ==

== ENCOUNTER → 2024-09-29 12:59 | Outpatient (BNVA) | payer MEDICARE, SELFPAY | PROVIDERS: PCP Family Medicine Adult Medicine; Visit Provider Podiatrist Foot & Ankle Surgery | DX: E11.42 Type 2 diabetes mellitus with diabetic polyneuropathy (principal); L60.3 Nail dystrophy; L84 Corns and callosities; I73.9 Peripheral vascular disease, unspecified; G62.9 Polyneuropathy, unspecified; Z79.84 Long term (current) use of oral hypoglycemic drugs | CPT/HCPCS: 11056; 11721; 99213 ==

== ENCOUNTER → 2024-12-01 12:52 | Outpatient (BNVA) | payer MEDICARE, SELFPAY | PROVIDERS: PCP Family Medicine Adult Medicine; Visit Provider Podiatrist Foot & Ankle Surgery | DX: E11.42 Type 2 diabetes mellitus with diabetic polyneuropathy (principal); L60.3 Nail dystrophy; I73.9 Peripheral vascular disease, unspecified; G62.9 Polyneuropathy, unspecified; Z79.84 Long term (current) use of oral hypoglycemic drugs | CPT/HCPCS: 11056; 11721 ==

== ENCOUNTER → 2024-12-11 11:44 | Outpatient (BNVA) | payer MEDICARE, SELFPAY | PROVIDERS: PCP Family Medicine Adult Medicine; Visit Provider Internal Medicine | DX: E11.9 Type 2 diabetes mellitus without complications (principal); E04.1 Nontoxic single thyroid nodule; E27.8 Other specified disorders of adrenal gland | CPT/HCPCS: 99214 ==

== ENCOUNTER → 2024-12-18 13:55 | Outpatient (BNVA) | payer MEDICARE, SELFPAY | PROVIDERS: PCP Family Medicine; Visit Provider Family Medicine | DX: I42.8 Other cardiomyopathies (principal); N40.1 Benign prostatic hyperplasia with lower urinary tract symptoms; R35.1 Nocturia | CPT/HCPCS: 84153; 85025 ==

== ENCOUNTER 2025-01-01 12:05 | Outpatient (CLI) | payer MEDICARE, SELFPAY ==
--- NOTE | 2025-01-01 12:00 | CT_ITS ---
WS: [id number] LDCT LUNG CANCER SCREENING HISTORY: screening TECHNIQUE: Axial imaging performed from the apices to 1 cm below the costophrenic angles. Coronal and sagittal reformats are submitted with axial MIP series. All CT scans at [facility] use at least one of these dose optimization techniques: automated exposure control; mA and/or kV adjustment per patient size (includes targeted exams where dose is matched to clinical indication); or iterative reconstruction. DLP: 249.50 mGy.cm DIvol: Mean CTDIvol: 5.90 (mGy) COMPARISON: 08/15/2023, 11/24/2021, abdomen CT 08/09/2023 Diagnostic quality: Significant breathing motion artifact. Lungs: Hyperexpanded lungs. Significant motion artifact upper lung kaur. Interstitial pulmonary thickening greatest LEFT upper lobe. 4 mm pulmonary nodule RIGHT lung base. No endobronchial lesions. Heart: Normal size heart. Moderate coronary artery calcification.. Other findings: Mild atherosclerosis aorta. Normal size pulmonary artery. No adenopathy. Long-term stability partially calcified mass measures 4.2 x 3.0 cm in the RIGHT epiphrenic fat. Bilateral adrenal adenomas. Largest adenoma on the LEFT is multilobulated measuring 5.0 x 3.3 cm. 2.4 cm cyst superior medial LEFT kidney. This cyst is stable. Cholelithiasis without acute cholecystitis. Chronic compression fracture involving probable T7. CT/CT lung screening [id number] IMPRESSION: LUNG-RADS: 2-Benign Appearance or Behavior FOLLOW UP: 12 Month: Continue annual screening with LDCT OTHER FINDINGS (S MODIFIER): None.
== END 2025-01-01 12:06 | disposition home or self-care (01) ==
LOC: RAD 12:06
PROVIDERS: PCP Family Medicine; Visit Provider Family Medicine
DX: Z12.2 Encounter for screening for malignant neoplasm of respiratory organs (principal); F17.219 Nicotine dependence, cigarettes, with unspecified nicotine-induced disorders; I25.10 Atherosclerotic heart disease of native coronary artery without angina pectoris; R91.8 Other nonspecific abnormal finding of lung field; I70.0 Atherosclerosis of aorta; D35.02 Benign neoplasm of left adrenal gland; D35.01 Benign neoplasm of right adrenal gland; N28.1 Cyst of kidney, acquired; K80.20 Calculus of gallbladder without cholecystitis without obstruction; M48.54XA Collapsed vertebra, not elsewhere classified, thoracic region, initial encounter for fracture; X58.XXXA Exposure to other specified factors, initial encounter
CPT/HCPCS: 71271

== ENCOUNTER → 2025-01-12 17:02 | Outpatient (BNVA) | payer MEDICARE, SELFPAY | PROVIDERS: PCP Family Medicine; Visit Provider Internal Medicine Cardiovascular Disease | DX: I50.22 Chronic systolic (congestive) heart failure (principal); I25.10 Atherosclerotic heart disease of native coronary artery without angina pectoris; I73.9 Peripheral vascular disease, unspecified; R00.2 Palpitations; I48.91 Unspecified atrial fibrillation; Z79.01 Long term (current) use of anticoagulants; I42.8 Other cardiomyopathies; Z91.148 Patient's other noncompliance with medication regimen for other reason; F17.210 Nicotine dependence, cigarettes, uncomplicated; R06.02 Shortness of breath; R07.9 Chest pain, unspecified; I50.9 Heart failure, unspecified | CPT/HCPCS: 36415; 80048; 80162; 83880; 85025; 93005; 99215 ==

== ENCOUNTER → 2025-01-18 09:54 | Outpatient (BNVA) | payer MEDICARE, SELFPAY | PROVIDERS: PCP Family Medicine; Visit Provider Family Medicine | DX: Z11.59 Encounter for screening for other viral diseases (principal); Z11.4 Encounter for screening for human immunodeficiency virus [HIV] | CPT/HCPCS: 86803; 87389 ==

== ENCOUNTER → 2025-06-08 14:33 | Outpatient (BNVA) | payer MEDICARE, SELFPAY | PROVIDERS: PCP Family Medicine; Visit Provider Podiatrist Foot & Ankle Surgery | DX: E11.42 Type 2 diabetes mellitus with diabetic polyneuropathy (principal); L60.3 Nail dystrophy; E11.8 Type 2 diabetes mellitus with unspecified complications; I73.9 Peripheral vascular disease, unspecified; G62.9 Polyneuropathy, unspecified; Z79.84 Long term (current) use of oral hypoglycemic drugs | CPT/HCPCS: 11721; 99213 ==